=== PATIENT | male | born 1990 | race Caucasian/White ===

== ENCOUNTER 2021-03-17 20:04 | Emergency (ER) | payer BC, SELFPAY ==
[2021-03-17 21:37] VITALS: PULSE 76; RESP 16; TEMP 36.7; O2SAT 95; BMI 29.4
[2021-03-17 21:56] VITALS: BP 0/0; PULSE 0; RESP 0; TEMP -17.7; TEMP 0
--- NOTE | 2021-03-17 22:03 | HMH.EDUTC ---
[facility] [place] Clinical Impression: Exposure to COVID-19 virus Disposition: Home, Self-Care Condition on Discharge: Good Instructions: DI for COVID-19 (Suspected or Confirmed ), Preventing the Spread of Coronavirus Discharge Instructions Additional Instructions: *Monitor Temp, Over the counter Motrin or Tylenol as directed/as needed Tylenol every 4 hours and Motrin every 6 hours (as long as your family doctor has told you that you can take it) for fever or pain. and straight to ER if unable to lower temp less than 101.0 after medication given Follow up IMMEDIATELY for new or worsening symptoms or no Noticeable improvement over the next 48-72 hours. 911 for difficulty breathing or swallowing You were tested for today for COVID19 your test result should be back in the next 24-48 hours You were tested for today for COVID19 your test result should be back in the next 24-48 hours, You was given a handout with how to log onto [facility] to get your results if you have issues logging on or no internet access you may call the [facility] for your results You was given a handout with instructions for Self Quarantine and Self isolation for while you wait on test results and what to do if they are positive If you are positive the Health Dept will be contacting you also Referrals: Provider,Referral, MD [Primary Care Provider] - Forms: Work/School Release Time of Disposition: 22:04 Medical Decision Making - Yaya Inquiry Pt receiving controlled substance: No Yaya was queried for this patient: No Vital Signs: 03/17/21 21:37 03/17/21 21:56 Temperature 98.1 F 0 F L Temperature Source Oral Pulse Rate 0 L Pulse Rate [Left] 76 Respiratory Rate 16 0 L Blood Pressure 0/0 L 02 Sat by Pulse Oximetry 95 Orders (Tests/Meds): ORDERS Category Date Time Status Covid-19 Nasal PCR ([facility]) Routine Lab 03/17/21 21:59 [place] [facility] [place] - General Stated complaint: covid test Time Seen by Provider: 03/17/21 22:03 Mode of Arrival: Ambulatory Source of Information: Patient Limitations: No Limitations Description of Symptoms (Recalled from Triage Doc. by RN): COVID TEST. EXPOSED. HEENT Symptoms (Recalled from RN notes): No Resp Symptoms (Recalled from RN notes): No Skin Symptoms (Recalled from RN notes): No MS Symptoms (Recalled from RN notes): No Functional Status (Recalled from RN notes): NA - History of Present Illness Provider Complaint: Patient states that his girlfriend recently tested postive for COVID and he isnt having any symptoms but he wanted to get tested to see if he may have it so he came in - Related Data Allergies Allergy/AdvReac Type Severity Reaction Status Date / Time No Known Allergies Allergy Unverified 06/20/17 15:01 - Worker's Comp Is this a Worker's Comp case?: No H History - Hepatitis A Screen Drug use history?: No High risk sexual behaviors?: No History of sexually transmitted infection?: No Currently employed?: No Childcare worker?: No Do you have indoor plumbing?: Yes Do you have electricity?: Yes Attestation statement:: This patient has been screened for Hepatitis A risk factors. I have reviewed the patient's past medical history: Yes ROS Obtained: Yes All systems reviewed & no additional complaints, Yes Systems reviewed as appropriate & no additional complaints - Constitutional Constitutional: Reports system reviewed and no additional complaints, except as docu, Denies body ache, Denies chills, Denies fever(s), Denies headache(s) - ENT Ears, Nose, Mouth, and Throat: Reports system reviewed and no additional complaints, except as docu, Denies nasal congestion, Denies nasal discharge, Denies sore throat - Cardiovascular Cardiovascular: Reports system reviewed and no additional complaints, except as docu - Respiratory Respiratory: Reports system reviewed and no additional complaints, except as docu - Gastrointestinal Gastrointestingal: Reports: system revie
== END 2021-03-17 22:09 | disposition home or self-care (01) ==
PROVIDERS: Emergency Provider Nurse Practitioner
DX: Z20.822 Contact with and (suspected) exposure to COVID-19 (principal)
CPT/HCPCS: 99202; C9803; G0463; U0003; U0005

== ENCOUNTER 2022-02-03 14:39 | Emergency (ER) | payer BC, SELFPAY ==
[2022-02-03 14:53] VITALS: BP 137/81; PULSE 77; RESP 15; TEMP 36.6; O2SAT 95; BMI 27.3
--- NOTE | 2022-02-03 14:55 | HMH.EDUTC ---
[facility] [place] Dis[place] Clinical Impression: Viral syndrome, Exposure to COVID-19 virus Disposition: Home, Self-Care Condition on Discharge: Good Instructions: DI for COVID-19 (Suspected or Confirmed ), Preventing the Spread of Coronavirus Discharge Instructions Additional Instructions: Drink plenty of fluids. Take tylenol for pain or fever. Return if you begin to have difficulty breathing. Follow up with your regular doctor. GO TO THE ER FOR ANY WORSENING SYMPTOMS Quarantine until you know the results of your covid-19 test. If it is positive, the health department should call you and give you further instructions about your length of Quarantine and other things. Notify your school or workplace of your results and follow their instructions regarding return to work/school. Prescriptions: Ibuprofen [Ibuprofen 800mg Tablet] 800 mg PO Q8HP PRN #30 tab PRN Reason: Moderate Pain Transmission Status: Received by [id number] Benzonatate [Benzonatate 100mg cap] 100 mg PO TIDP PRN #30 cap PRN Reason: Cough Transmission Status: Received by [id number] Referrals: Provider,Referral, [Primary Care Provider] - Forms: Work/School Release Time of Disposition: 15:30 Medical Decision Making - Medical Records Medical records reviewed: No: I reviewed the patient's medical records. - Yaya Inquiry Pt receiving controlled substance: No Vital Signs: 02/03/22 14:53 02/03/22 15:37 Temperature 97.8 F 97.8 F Temperature Source Oral Pulse Rate 77 Pulse Rate [Left] 77 Respiratory Rate 15 15 Blood Pressure 137/81 Blood Pressure [Right Arm] 137/81 Blood Pressure Mean [Right Arm] 99 02 Sat by Pulse Oximetry 95 Orders (Tests/Meds): ORDERS Category Date Time Status Covid-19 Nasal PCR ([facility]) Routine Lab 02/03/22 14:[address] [facility] [place] HPI - General Stated complaint: cough, headache Time Seen by Provider: 02/03/22 14:55 Mode of Arrival: Ambulatory Source of Information: Patient Limitations: No Limitations Description of Symptoms (Recalled from Triage Doc. by RN): patient comes in today with complaints of cough and headache. symptoms began monday HEENT Symptoms (Recalled from RN notes): Yes Resp Symptoms (Recalled from RN notes): Yes Skin Symptoms (Recalled from RN notes): No MS Symptoms (Recalled from RN notes): No Functional Status (Recalled from RN notes): n/a - History of Present Illness Provider Complaint: He states that he has had a nonproductive cough and sore throat and headache for the past 3 days. - Related Data Previous Rx's Medication Instructions Recorded Benzonatate [Benzonatate 100mg 100 mg PO TIDP PRN #30 cap 02/03/22 cap] Ibuprofen [Ibuprofen 800mg 800 mg PO Q8HP PRN #30 tab 02/03/22 Tablet] Allergies Allergy/AdvReac Type Severity Reaction Status Date / Time No Known Allergies Allergy Verified 02/03/22 14:55 - Worker's Comp Is this a Worker's Comp case?: No [facility] History - Hepatitis A Screen Attestation statement:: This patient has been screened for Hepatitis A risk factors. I have reviewed the patient's past medical history: Yes ROS Obtained: Yes All systems reviewed & no additional complaints - Constitutional Constitutional: Reports as per HPI - Eyes Eyes: Denies eye discharge - ENT Ears, Nose, Mouth, and Throat: Reports as per HPI - Cardiovascular Cardiovascular: Denies chest pain - Respiratory Respiratory: Denies chest congestion, Reports cough Physical Exam - General General appearance: alert, in no apparent distress - Head Head exam: atraumatic, normocephalic, normal inspection - Eye Eye exam: Present: normal appearance, PERRL, EOMI - ENT ENT exam: Present: normal exam, normal oropharynx, mucous membranes moist, TM's normal bilaterally, normal external ear exam - Neck Neck exam: Present: normal inspection, full ROM, trachea midline. Absent: meningismus, lymphadenopathy
[2022-02-03 15:37] VITALS: BP 137/81; PULSE 77; RESP 15; TEMP 36.6
== END 2022-02-03 15:38 | disposition home or self-care (01) ==
PROVIDERS: Emergency Provider Nurse Practitioner Family
DX: J02.9 Acute pharyngitis, unspecified (principal); R05.9 Cough, unspecified; R51.9 Headache, unspecified; Z20.822 Contact with and (suspected) exposure to COVID-19; Z79.1 Long term (current) use of non-steroidal anti-inflammatories (NSAID)
CPT/HCPCS: 99213; C9803; G0463; U0003; U0005

== ENCOUNTER 2023-02-19 21:23 | Emergency (ER) | payer BC, SELFPAY ==
[2023-02-19 21:24] VITALS: BP 163/93; PULSE 94; RESP 16; TEMP 37.2; O2SAT 99; BMI 22.3
[2023-02-19 21:35] VITALS: BP 163/93; PULSE 89; O2SAT 100
[2023-02-19 21:51] VITALS: PULSE 94; RESP 16; TEMP 37.2; O2SAT 99; BMI 22.3
--- NOTE | 2023-02-19 22:14 | PC.NURSE ---
pt is sleeping room,call light at bs
--- NOTE | 2023-02-19 22:19 | CT_ITS ---
PROCEDURE INFORMATION: Exam: CT Abdomen And Pelvis With Contrast Exam date and time: 02/19/2023 11:14 PM Age: 32 years old Clinical indication: Abdominal pain; Additional info: Ruq/r inferior thoracic cage abscess TECHNIQUE: Imaging protocol: Computed tomography of the abdomen and pelvis with contrast. Radiation optimization: All CT scans at this facility use at least one of these dose optimization techniques: automated exposure control; mA and/or kV adjustment per patient size (includes targeted exams where dose is matched to clinical indication); or iterative reconstruction. Contrast material: ISOVUE; Contrast volume: 75 ml; Contrast route: IV; REPORTING DATA: Count of CT and Cardiac NM exams in prior 12 months: This patient has received 0 known CTs and 0 known cardiac nuclear medicine studies in the 12 months prior to the current study. COMPARISON: No relevant prior studies available. FINDINGS: Liver: Normal. No mass. Gallbladder and bile ducts: Gallbladder is contracted with 1.7 cm noncalcified gallstone noted in the gallbladder fundus. Pancreas: Normal. No ductal dilation. Spleen: Normal. No splenomegaly. Adrenal glands: Normal. No mass. Kidneys and ureters: Normal. No hydronephrosis. Stomach and bowel: There is moderate fecal retention throughout the colon. No bowel wall thickening or inflammation. No evidence of bowel obstruction. Appendix: The appendix is visualized and appears normal. Intraperitoneal space: Unremarkable. No free air. No significant fluid collection. Vasculature: Unremarkable. No abdominal aortic aneurysm. Lymph nodes: Unremarkable. No enlarged lymph nodes. Urinary bladder: Unremarkable as visualized. Reproductive: Unremarkable as visualized. Bones/joints: Unremarkable. No acute fracture. Soft tissues: Localized subcutaneous soft tissue edema of the right anterolateral lower chest wall. No discrete fluid collection. IMPRESSION: 1. Localized cellulitis of the lower right anterolateral chest wall. No evidence of abscess underlying bony abnormality 2. Moderate colonic fecal retention. 3. Cholelithiasis
--- NOTE | 2023-02-19 22:19 | CT_ITS ---
PROCEDURE INFORMATION: Exam: CT Chest With Contrast; Diagnostic Exam date and time: 02/19/2023 11:14 PM Age: 32 years old Clinical indication: Chest wall pain; Additional info: R inferior thoracic cage abscess, ivdu TECHNIQUE: Imaging protocol: Diagnostic computed tomography of the chest with contrast. Radiation optimization: All CT scans at this facility use at least one of these dose optimization techniques: automated exposure control; mA and/or kV adjustment per patient size (includes targeted exams where dose is matched to clinical indication); or iterative reconstruction. Contrast material: ISOVUE; Contrast volume: 75 ml; Contrast route: IV; REPORTING DATA: Count of CT and Cardiac NM exams in prior 12 months: This patient has received 0 known CTs and 0 known cardiac nuclear medicine studies in the 12 months prior to the current study. COMPARISON: No relevant prior studies available. FINDINGS: Lungs: Unremarkable. No consolidation. No masses. Pleural spaces: Unremarkable. No pneumothorax. No pleural effusion. Heart: Unremarkable. No cardiomegaly. No pericardial effusion. Lymph nodes: Mild bilateral axillary lymphadenopathy, greater on the right. Vasculature: Unremarkable. No aortic aneurysm. Gallbladder and bile ducts: 1.7 cm noncalcified gallstone noted in the gallbladder. Gallbladder appears contracted but otherwise unremarkable. Bones/joints: Unremarkable. No acute fracture. Soft tissues: Localized significant subcutaneous soft tissue edema in the right anterolateral lower chest wall. No loculated fluid collection seen in the area to suggest abscess. IMPRESSION: 1. Localized subcutaneous soft tissue edema in the anterolateral right lower chest wall compatible with cellulitis. No discrete abscess or underlying bony abnormality 2. Cholelithiasis
--- NOTE | 2023-02-19 22:23 | HMH.EDGENADL ---
Discharge Plan Disposition Patient Disposition: Home, Self-Care Condition: Fair Prescriptions Prescriptions: New sulfamethoxazole-trimethoprim 800-160 mg tablet 1 tab PO Q12H 10 Days Qty: 20 0RF No Action benzonatate 100 MG capsule 100 mg PO TIDP PRN (Reason: Cough) Qty: 30 0RF ibuprofen 800 MG tablet 800 mg PO Q8HP PRN (Reason: Moderate Pain) Qty: 30 0RF Referrals Follow up/Referrals: Provider,Referral, [Primary Care Provider] - See instructions Activity Restrictions/Add. Instructions Additional Instructions/Restrictions: Take the prescribed antibiotics as directed, do not skip doses, do not stop taking them early. Continue taking your previously prescribed medications as directed. Follow-up with your primary care physician in 2 days for reassessment. You have been given a list of primary care providers. Make an appointment with them. Return to the emergency department with new or worsening symptoms. Clinical Impressions Clinical Impression: Cellulitis of chest wall Instructions Patient Instructions: DI for Skin Abscess Discharge ED Provider: Roe Sanchez General Adult HPI <Grayson Sorto MD - Last Filed: 02/19/23 23:15> General Chief complaint: Skin/Abscess/Foreign Body Stated complaint: sore on stomach Time Seen by Provider: 02/19/23 21:41 Mode of Arrival: Ambulatory Source of Information: Patient Limitations: No Limitations Description of Symptoms (Recalled from ER Triage Doc. by RN): pt reports red area appeared 4 days ago on right side of abd, reports he drained it now having increasing pain and redness History of Present Illness HPI narrative: Patient is a 32-year-old male with past medical history of meth use, IV drug use who presents emergency department for evaluation of right inferior thoracic cage swelling. Onset was acute, occurring approximately 4 days ago. He reports he attempted to drain it however redness and swelling has increased causing him to present here. Pain is moderate in intensity, no other acute complaints at this time. Related Data Previous Rx's Medication Instructions Recorded benzonatate 100 mg capsule 100 mg PO TIDP PRN Cough #30 caps 02/03/22 ibuprofen 800 mg tablet 800 mg PO Q8HP PRN Moderate Pain 02/03/22 #30 tabs sulfamethoxazole 800 1 tab PO Q12H 10 days #20 tabs 02/20/23 mg-trimethoprim 160 mg tablet Allergies Allergy/AdvReac Type Severity Reaction Status Date / Time No Known Allergies Allergy Verified 02/03/22 14:55 PFSH <Grayson Sorto MD - Last Filed: 02/19/23 23:15> PFSH Disclaimer: The information contained in this section may have been updated after the patient was seen, as this information can be updated by other users. Social History (Updated 02/19/23 @ 23:15 by Grayson Sorto MD) Smoking Status: Current every day smoker alcohol intake: current current occupational status: other Travel in the last 8 weeks: None <Grayson Sorto MD - Last Filed: 02/19/23 23:15> ROS Obtained: Yes Systems reviewed as appropriate & no additional complaints except as documented Physical Exam <Grayson Sorto MD - Last Filed: 02/19/23 23:15> General General appearance: alert and in no apparent distress Head Head exam: atraumatic and normocephalic Eye Eye exam: Present PERRL and EOMI ENT ENT exam: Present mucous membranes moist Neck Neck exam: Present normal inspection Chest Chest inspection: Present normal inspection and symmetric chest wall rise Expanded Chest Exam Trauma: Present other (Large indurated area of erythema with central scabbing over the right inferior thoracic cage extending just into the right upper quadrant of the abdomen, tender to palpation) Respiratory Respiratory exam: Present normal lung sounds bilaterally; Absent respiratory distress Cardiovascular Cardiovascular exam: Present regular rate and normal rhythm Abdominal Exam Abdominal exam: Present soft; Absent tenderness Extremities Exam
[2023-02-19 22:43] LABS: Basophils # 0.1 K/mm3 (0-0.2); Basophils % 0.5 % (0.1-2.0); Eosinophils % 6.6 % (0.1-12.0); Hematocrit 44.6 % (42.0-52.0); Hemoglobin 14.4 g/dL (14.1-18.0); Lymphocytes # 2.7 K/mm3 (0.7-4.5); Lymphocytes % 18.3 % (10-50); Mean Corpuscular HGB Conc 32.2 g/dL (31.8-35.4); Mean Corpuscular Hemoglobin 28.5 pg (27.0-31.2); Mean Corpuscular Volume 88.5 fl (80-94); Mean Platelet Volume 9.6 fl (7.4-10.4); Monocytes # 0.7 K/mm3 (0.1-1.0); Neutrophils # 10.1 K/mm3 (1.8-7.8); Neutrophils % 69.7 % (37.0-80.0); Platelet Count 217 K/mm3 (142-424); Red Blood Count 5.04 M/mm3 (4.60-6.20); Red Cell Distribution Width 14.1 % (11.5-17.5); White Blood Count 14.6 K/mm3 (4.8-10.8)
[2023-02-19 22:59] LABS: Chloride 98 mmol/L (98-107); Potassium 3.5 mmoL/L (3.5-5.1); Sodium 136 mmol/L (136-145)
[2023-02-19 23:02] LABS: Alanine Aminotransferase 91 U/L (12-78); Albumin Level 3.4 g/dl (3.5-5.0); Albumin/Globulin Ratio 1.1 (1.1-1.8); Alkaline Phosphatase 88 U/L (38-126); Anion Gap 10.5 mEq/L (5-15); Aspartate Amino Transferase 52 U/L (17-59); Bilirubin,Total 0.4 mg/dl (0.2-1.3); Blood Urea Nitrogen 16 mg/dl (9-20); Carbon Dioxide 31 mmol/L (22.0-30.0); Creatinine Clearance Estimated 158 mL/min (50-200); Estimated Glomerular Filt Rate 132 ml/min (>60); GFR (African American) 160 ML/MIN (>60); Globulin 3.1 g/dL (1.3-3.2); Total Protein,Serum 6.5 g/dl (6.3-8.2)
[2023-02-19 23:03] LABS: Calcium 8.7 mg/dl (8.4-10.2); Glucose 109 mg/dl (74-100)
[2023-02-20 00:05] VITALS: BP 163/78; PULSE 96; O2SAT 98
--- NOTE | 2023-02-20 00:05 | PC.NURSE ---
Rounded on pt. No needs voiced at this time.
[2023-02-20 00:13] VITALS: BP 163/97; PULSE 82; RESP 16; TEMP 37.1; O2SAT 99
== END 2023-02-20 00:13 | disposition home or self-care (01) ==
PROVIDERS: Emergency Medicine; Emergency Provider Emergency Medicine
DX: L03.313 Cellulitis of chest wall (principal); F17.200 Nicotine dependence, unspecified, uncomplicated
CPT/HCPCS: 71260; 74177; 80053; 85025; 86140; 96360; 99285; Q9967

== ENCOUNTER 2023-03-26 03:59 | Emergency (ER) | payer SELFPAY ==
[2023-03-26] VITALS (10 sets, daily range): BP systolic 118–147; BP diastolic 67–91; PULSE 72–94; RESP 14–20; TEMP 36.5–36.6; O2SAT 97–100; BMI 22.8
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
--- NOTE | 2023-03-26 04:09 | PC.NURSE ---
Called to request medical records from pts visit at their facility. Advised to fax over a medical release form and they will send them to us. Form faxed over. JOSÉ MANUEL
[2023-03-26 04:34] LABS: Basophils # 0.1 K/mm3 (0-0.2); Basophils % 0.6 % (0.1-2.0); Eosinophils # 0.5 K/mm3 (0.0-0.4); Eosinophils % 4.6 % (0.1-12.0); Hematocrit 48.8 % (42.0-52.0); Hemoglobin 15.7 g/dL (14.1-18.0); Lymphocytes # 2.1 K/mm3 (0.7-4.5); Lymphocytes % 18.1 % (10-50); Mean Corpuscular HGB Conc 32.1 g/dL (31.8-35.4); Mean Corpuscular Hemoglobin 28.2 pg (27.0-31.2); Mean Corpuscular Volume 87.7 fl (80-94); Mean Platelet Volume 9.9 fl (7.4-10.4); Monocytes # 0.6 K/mm3 (0.1-1.0); Monocytes % 5.4 % (1.7-9.3); Neutrophils # 8.3 K/mm3 (1.8-7.8); Neutrophils % 71.2 % (37.0-80.0); Platelet Count 239 K/mm3 (142-424); Red Blood Count 5.57 M/mm3 (4.60-6.20); White Blood Count 11.6 K/mm3 (4.8-10.8)
[2023-03-26 04:39] LABS: Chloride 103 mmol/L (98-107)
[2023-03-26 04:40] LABS: Potassium 3.6 mmoL/L (3.5-5.1); Sodium 142 mmol/L (136-145)
[2023-03-26 04:42] LABS: Blood Urea Nitrogen 16 mg/dl (9-20); Creatinine Clearance Estimated 119 mL/min (50-200); Estimated Glomerular Filt Rate 99 ml/min (>60); GFR (African American) 120 ML/MIN (>60)
[2023-03-26 04:43] LABS: Anion Gap 9.6 mEq/L (5-15); Carbon Dioxide 33 mmol/L (22.0-30.0); Glucose 113 mg/dl (74-100)
--- NOTE | 2023-03-26 04:54 | PC.NURSE ---
received call from chavo
--- NOTE | 2023-03-26 05:00 | PC.NURSE ---
Called for a Neurological consult for Dr Hopper. Waiting bone grinder back. CR
--- NOTE | 2023-03-26 05:28 | PC.NURSE ---
Called EMS to transfer the pt back to for further evaluation. Called and spoke to Camille. JOSÉ MANUEL
--- NOTE | 2023-03-26 06:43 | PC.NURSE ---
waiting on EMS due to ambulance avail. is aware.
--- NOTE | 2023-03-26 07:25 | PC.NURSE ---
Rounded on pt. No needs voiced at this time. Pt updated on expected wait times. Call light within reach.
--- NOTE | 2023-03-26 07:37 | PC.NURSE ---
PT RESTING ON RIGHT SIDE, NO NEEDS VOICED. CALL LIGHT WITHIN REACH
--- NOTE | 2023-03-26 08:22 | PC.NURSE ---
rounded on pt, updated pt EMS is on their way for transport, pt requested medication for headache, notified dr. greer who gave verbal order.
--- NOTE | 2023-03-26 08:33 | PC.NURSE ---
REPORT GIVEN TO [facility]
== END 2023-03-26 08:37 | disposition short-term general hospital (02) ==
PROVIDERS: Emergency Provider Emergency Medicine
DX: S06.5XAA Traumatic subdural hemorrhage with loss of consciousness status unknown, initial encounter (principal); S02.81XA Fracture of other specified skull and facial bones, right side, initial encounter for closed fracture; Y09 Assault by unspecified means; F17.200 Nicotine dependence, unspecified, uncomplicated
CPT/HCPCS: 70450; 70486; 80048; 85025; 96361; 96374; 96375; 99291

== ENCOUNTER 2023-09-24 18:45 | Emergency (ER) | payer MEDICAID, SELFPAY ==
[2023-09-24 18:46] VITALS: BP 168/105; PULSE 108; RESP 16; TEMP 36.2; O2SAT 88; BMI 23.7
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
--- NOTE | 2023-09-24 18:52 | ECG_ITS ---
APPROVED REPORT Exam: Resting ECG HR:113 bpm ECG Measurements Heart Rate 113 AXES MS 167 P 77 QRSd 122 QRS 49 QT 340 T 38 QTc 407 Critical Notification Critical Value: No Conclusion SINUS TACHYCARDIA POSSIBLE RIGHT VENTRICULAR CONDUCTION DELAY [RSR (QR) IN V1/V2] Electronically signed by : JAYE KNAPP, 09/25/2023 00:50:01
[2023-09-24] MEDS: NALOXONE 2MG/2ML SYRINGE 2 MG IV (18:56)
[2023-09-24] MEDS: ONDANSETRON 4MG/2ML VIAL 8 MG IV (18:56)
[2023-09-24 19:00] VITALS: BP 161/108; PULSE 99; RESP 21; O2SAT 99
[2023-09-24 19:30] VITALS: BP 160/108; PULSE 98; RESP 18; O2SAT 100
--- NOTE | 2023-09-24 19:30 | PC.NURSE ---
rounded on patient, mother stepped out of room
[2023-09-24] MEDS: NALOXONE HCL 4MG SPRAY 4 MG NS ×2 (19:36→20:50)
--- NOTE | 2023-09-24 19:42 | PC.NURSE ---
Provided patient with a urinal so he could use the bathroom, after re-entering the room the patient asked for a drink. After getting the patient a drink he asked when he would be able to leave and stated that he would like to leave as soon as possible. After relaying the info to the doctor he stated what the effects of the patient leaving and the medicine wearing off and he could stop breathing again. The patient was informed of all these things and agreed to stay.
[2023-09-24 19:44] VITALS: BP 165/116; PULSE 99; O2SAT 99
[2023-09-24 20:00] VITALS: BP 153/128; PULSE 104; RESP 17; O2SAT 100
--- NOTE | 2023-09-24 20:06 | PC.NURSE ---
rounded on patient, no needs at this time, mother at bedside
[2023-09-24 21:29] VITALS: BP 120/70; PULSE 101; RESP 19; TEMP 36.8; O2SAT 98
== END 2023-09-24 21:30 | disposition home or self-care (01) ==
PROVIDERS: Emergency Provider Emergency Medicine
DX: T40.1X1A Poisoning by heroin, accidental (unintentional), initial encounter (principal); R00.0 Tachycardia, unspecified; F17.210 Nicotine dependence, cigarettes, uncomplicated
CPT/HCPCS: 93005; 96374; 96375; 99285; J2310; J2405

== ENCOUNTER 2024-01-22 20:02 | Emergency (ER) | payer MEDICAID, SELFPAY ==
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
[2024-01-22 20:02] VITALS: BP 153/92; PULSE 92; RESP 18; TEMP 36.8; O2SAT 100; BMI 24.3
[2024-01-22] MEDS: ACETAMINOPHEN 500MG TAB 1000 MG PO (20:15)
[2024-01-22] MEDS: cephALEXin 500MG CAPSULE 500 MG PO (20:15)
[2024-01-22] MEDS: LIDOCAINE 1% 10ML MDV 10 ML SQ (20:16)
--- NOTE | 2024-01-22 20:22 | PC.NURSE ---
patient to radiology
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
[2024-01-22 20:55] VITALS: BP 130/74; PULSE 95; O2SAT 100
[2024-01-22 22:17] VITALS: BP 130/84; PULSE 80; RESP 16; TEMP 36.6; O2SAT 98
== END 2024-01-22 22:20 | disposition home or self-care (01) ==
PROVIDERS: Emergency Provider Student in an Organized Health Care Education/Training Program
DX: S01.81XA Laceration without foreign body of other part of head, initial encounter (principal); F19.90 Other psychoactive substance use, unspecified, uncomplicated; W17.89XA Other fall from one level to another, initial encounter; Z23 Encounter for immunization
CPT/HCPCS: 12014; 70450; 70486; 72125; 90471; 99285

== ENCOUNTER 2024-01-24 16:11 | Emergency (ER) | payer MEDICAID, SELFPAY ==
[2024-01-24 16:20] VITALS: BP 119/62; PULSE 62; RESP 20; TEMP 36.9; O2SAT 99; BMI 22.9
--- NOTE | 2024-01-24 16:43 | ED_ITS ---
Discharge Plan Disposition Patient Disposition: Home, Self-Care Condition: Good Prescriptions Prescriptions: No Action cephalexin 500 mg capsule 500 mg PO BID 7 Days Qty: 14 0RF benzonatate 100 MG capsule 100 mg PO TIDP PRN (Reason: Cough) Qty: 30 0RF ibuprofen 800 MG tablet 800 mg PO Q8HP PRN (Reason: Moderate Pain) Qty: 30 0RF sulfamethoxazole-trimethoprim 800-160 mg tablet 1 tab PO Q12H 10 Days Qty: 20 0RF Referrals Follow up/Referrals: Provider,Referral, MD [Primary Care Provider] - See instructions Activity Restrictions/Add. Instructions Additional Instructions/Restrictions: Continue taking antibiotivc as prescribed Ice to area 20min every coulple hours may help with swelling and pain Follow up with Eye Doctor if any vision changes or problems Follow up with your Family Doctor if needed or no improvement Straight to ER if any life threatening symptoms, worse headache of your life, vision loss or changes etc as discussed Clinical Impressions Clinical Impression: Visit for wound check Instructions Patient Instructions: DI for Hematoma (Bruise), DI for Closed Head Injury Print Language Print Language: Iranian Discharge ED Provider: Zoya Yanez [facility] [place] General Stated complaint: swollen eye, head hurts Mode of Arrival: Ambulatory Source of Information: Patient Limitations: No Limitations Time Seen by Provider: 01/24/24 16:43 Description of Symptoms (Recalled from Triage Doc. by RN): PATIENT STATES HE HIT HIS HEAD AND LEFT EYE AREA ON A ROCK A FEW DAYS AGO. HE WAS SEEN IN THE ER AFTER THE INCIDENT, BUT STATES THE SWELLING AROUND THE EYE HAS GOTTEN WORSE HEENT Symptoms (Recalled from RN notes): Yes Resp Symptoms (Recalled from RN notes): No Skin Symptoms (Recalled from RN notes): No MS Symptoms (Recalled from RN notes): No Functional Status (Recalled from RN notes): WNL History of Present Illness Provider Complaint: Patient states that he was jumping off the rocks into the water the other day and hit his head on something causing laceration to left eyebrow area States he was seen and treated in the ED and got sutures States that they did some imaging to check his head, neck and face and everything was ok nothing broken and they sutured his eyebrow and give him some antibiotics States he hasnt been having any vision issues or pain in his eye but today noticed the swelling was a little worse and he was worried so he came in just wanting someone to look at it Denies changes in vision, denies worsening of headache, nausea/vomiting or any dizziness Related Data Previous Rx's ?Medication ?Instructions ?Recorded benzonatate 100 mg capsule 100 mg PO TIDP PRN Cough #30 caps 02/03/22 ibuprofen 800 mg tablet 800 mg PO Q8HP PRN Moderate Pain 02/03/22 #30 tabs sulfamethoxazole 800 1 tab PO Q12H 10 days #20 tabs 02/20/23 mg-trimethoprim 160 mg tablet cephalexin 500 mg capsule 500 mg PO BID 7 days #14 caps 01/22/24 Allergies Allergy/AdvReac Type Severity Reaction Status Date / Time No Known Allergies Allergy Verified 02/03/22 14:55 Worker's Comp Is this a Worker's Comp case?: No [facility] Disclaimer: The information contained in this section may have been updated after the patient was seen, as this information can be updated by other users. Social History Smoking Status: Current every day smoker alcohol intake: current current occupational status: other Travel in the last 8 weeks: None ROS Obtained: Yes All systems reviewed & no additional complaints except as documented and Yes Systems reviewed as appropriate & no additional complaints except as documented Constitutional Constitutional: Reports system reviewed and no additional complaints, except as documented and Reports as per HPI Eyes Eyes: Reports system reviewed and no additional complaints, except as documented and Reports as per HPI Comments: laceration that was repaired on left eyebrow area and swelling around eye ENT Ears, Nose, Mouth, and Throat: Reports system reviewed and no additional complaints, except as documented and Reports as per HPI Cardiovascular Cardiovascular: Reports system reviewed and no additional complaints, except as documented and Reports as per HPI Respiratory Respiratory: Reports system reviewed and no additional complaints, except as documented and Reports as per HPI Gastrointestinal Gastrointestingal: Reports system reviewed and no additional complaints, except as documented and as per HPI Musculoskeletal Musculoskeletal: Reports system reviewed and no additional complaints, except as documented and Reports as per HPI Physical Exam General General appearance: alert and in no apparent distress Expanded Head Exam Head exam physical: Present contusion and other Head image: 2 1. sutures noted in left eyebrow, intact, no drainage, bruising and mild swelling noted 2. mild swelling and bruising noted no open wounds, able to open eye easily, able to move eye side to side and up and down without difficulty Eye Eye exam: Present normal appearance, PERRL, EOMI and other (see above ); Absent conjunctival redness or discharge Respiratory Respiratory exam: Present normal lung sounds bilaterally; Absent respiratory distress or wheezes Cardiovascular Cardiovascular exam: Present regular rate, normal rhythm and normal heart sounds Neurological Exam Neurological exam: Present alert, oriented X3 and normal gait Medical Decision Making Yaya Inquiry Pt receiving controlled substance: No Yaya was queried for this patient: No Vital Signs: 01/24/24 16:20 Temperature 98.4 F Temperature Source Oral Pulse Rate [Left Brachial] 62 Respiratory Rate 20 Blood Pressure [Left Arm] 119/62 Blood Pressure Mean [Left Arm] 81 Blood Pressure Source [Left Arm] Automatic Cuff Blood Pressure Position [Left Arm] Sitting 02 Sat by Pulse Oximetry 99 Oxygen Delivery Method Room Air Medical Decision Narrative: Patient denies worse headache of his life, denies vision changes or difficulty, denies confusion or N/V States noticed swelling was a little worse when he woke up and he was concerned wanting someone to look at it, patient had CT of head, Ct facial bones and CT cervical spine when in ED 2 days prior looked at results and discussed with patient Patient denies seeing spots etc, Patient states he has been taking antibiotics but has not been applying ice to area Patient educated to apply ice to help with swelling and follow up with eye doctor if any changes in vision Discussed transfer to the ED patient declined Mild swelling noted at this time with mild bruising on eyelid Patient given strict return precautions to the ED and educated that there will be swelling over the next few days due to injury and he verbalized understanding
[2024-01-24 16:54] VITALS: BP 119/62; PULSE 62; RESP 20; TEMP 36.9; O2SAT 99
== END 2024-01-24 17:01 | disposition home or self-care (01) ==
PROVIDERS: Emergency Provider Nurse Practitioner
DX: R22.0 Localized swelling, mass and lump, head (principal)
CPT/HCPCS: 99212; 99213; G0463

== ENCOUNTER 2024-03-19 13:27 | Emergency (ER) | payer MEDICAID, SELFPAY ==
[2024-03-19 14:03] VITALS: BP 133/76; PULSE 82; RESP 16; TEMP 36.8; O2SAT 99; BMI 25.1
--- NOTE | 2024-03-19 14:17 | ED_ITS ---
Discharge Plan Disposition Patient Disposition: Home, Self-Care Condition: Good Prescriptions Prescriptions: New sulfamethoxazole-trimethoprim [Bactrim DS] 800-160 mg Tablet 1 tab PO BID Qty: 20 0RF cephalexin 500 mg capsule 500 mg PO QID Qty: 40 0RF mupirocin 2 % ointment 1 applic topical TID 7 Days Qty: 15 0RF No Action cephalexin 500 mg capsule 500 mg PO BID 7 Days Qty: 14 0RF benzonatate 100 MG capsule 100 mg PO TIDP PRN (Reason: Cough) Qty: 30 0RF ibuprofen 800 MG tablet 800 mg PO Q8HP PRN (Reason: Moderate Pain) Qty: 30 0RF sulfamethoxazole-trimethoprim 800-160 mg tablet 1 tab PO Q12H 10 Days Qty: 20 0RF Referrals Follow up/Referrals: Provider,Referral, MD [Primary Care Provider] - See instructions Activity Restrictions/Add. Instructions Additional Instructions/Restrictions: Keep the affected area clean and dry. Follow up with your regular doctor. Take the antibiotics as directed and apply the topical antibiotics as directed. Apply warm wet compresses to the affected area three or four times per day. GO TO THE ER FOR ANY WORSENING SYMPTOMS We took a culture of the drainage from the abscesses. This test will take 3 days to complete. It will tell which antibiotic that treat your infection best. Clinical Impressions Clinical Impression: Cutaneous abscess of left axilla, Abscess of skin Stand Alone Forms Stand Alone Forms: Work/School Release Instructions Patient Instructions: Ceftriaxone Injection, DI for Skin Abscess, DI for Incision and Drainage Print Language Print Language: Upper Sorbian Discharge ED Provider: Terrance Martin [facility] General Stated complaint: cyst on L underarm Mode of Arrival: Ambulatory Source of Information: Patient Limitations: No Limitations Time Seen by Provider: 03/19/24 14:17 Description of Symptoms (Recalled from Triage Doc. by RN): Reports having an abscess to left armit for 5 days. HEENT Symptoms (Recalled from RN notes): No Resp Symptoms (Recalled from RN notes): No Skin Symptoms (Recalled from RN notes): Yes MS Symptoms (Recalled from RN notes): No Functional Status (Recalled from RN notes): wnl History of Present Illness Provider Complaint: He states that for the past 5 days he has had a worsening skin abscess in his left axilla. He has had similar issues to this in the past and he had to have it drained then. He denies any fever/chills/malaise. He is not a diabetic. Related Data Previous Rx's ?Medication ?Instructions ?Recorded benzonatate 100 mg capsule 100 mg PO TIDP PRN Cough #30 caps 02/03/22 ibuprofen 800 mg tablet 800 mg PO Q8HP PRN Moderate Pain 02/03/22 #30 tabs sulfamethoxazole 800 1 tab PO Q12H 10 days #20 tabs 02/20/23 mg-trimethoprim 160 mg tablet cephalexin 500 mg capsule 500 mg PO BID 7 days #14 caps 01/22/24 cephalexin 500 mg capsule 500 mg PO QID #40 caps 03/19/24 mupirocin 2 % topical ointment 1 applic topical TID 7 days #15 03/19/24 grams sulfamethoxazole 800 1 tab PO BID #20 tabs 03/19/24 mg-trimethoprim 160 mg tablet (Bactrim DS) Allergies Allergy/AdvReac Type Severity Reaction Status Date / Time No Known Allergies Allergy Verified 02/03/22 14:55 Worker's Comp Is this a Worker's Comp case?: No [facility] Disclaimer: The information contained in this section may have been updated after the patient was seen, as this information can be updated by other users. Social History Smoking Status: Current every day smoker alcohol intake: current current occupational status: other Travel in the last 8 weeks: None ROS Obtained: Yes All systems reviewed & no additional complaints except as documented Constitutional Constitutional: Denies chills and Denies fever(s) Eyes Eyes: Denies eye discharge ENT Ears, Nose, Mouth, and Throat: Denies dizziness, Denies otalgia and Denies sore throat Cardiovascular Cardiovascular: Denies chest pain Respiratory Respiratory: Denies shortness of breath, Denies chest congestion, Denies cough, Denies stridor and Denies wheezing Gastrointestinal Gastrointestingal: Denies nausea or vomiting Musculoskeletal Musculoskeletal: Reports system reviewed and no additional complaints, except as documented and Denies arthralgias Integumentary/Breasts Skin/Breast: Reports as per HPI Neurologic Neurologic: Denies dizziness and Denies paresthesias Allergic/Immunologic Allergic/Immunologic: Denies wheezing Physical Exam General General appearance: alert and in no apparent distress Head Head exam: atraumatic, normocephalic and normal inspection Eye Eye exam: Present normal appearance, PERRL and EOMI ENT ENT exam: Present normal exam, normal oropharynx, mucous membranes moist, TM's normal bilaterally and normal external ear exam Neck Neck exam: Present normal inspection, full ROM and trachea midline; Absent meningismus or lymphadenopathy Chest Chest inspection: Present normal inspection and symmetric chest wall rise; Absent tenderness Respiratory Respiratory exam: Present normal lung sounds bilaterally; Absent respiratory distress Cardiovascular Cardiovascular exam: Present regular rate and normal rhythm; Absent JVD Abdominal Exam Abdominal exam: Present soft and normal bowel sounds; Absent distention, tenderness or guarding Extremities Exam Extremities exam: Present normal inspection, full ROM and normal capillary refill; Absent calf tenderness Back Exam Back exam: Present normal inspection; Absent tenderness Neurological Exam Neurological exam: Present alert and oriented X3 Psychiatric Psychiatric exam: Present normal affect and normal mood Skin Skin exam: Present other (there are 2 areas of edema, redness, and induration in his left axilla. ) Lymphatic Lymphatic Findings: no adenopathy Medical Decision Making Medical Records Medical records reviewed: No I reviewed the patient's medical records. Screening: Per USPSTF and CDC recommendations, given the prevalence of disease in our region, it is our hospital?s policy to screen for HIV and viral Hepatitis for all patients aged 18 and over and those with ongoing risk factors. Yaya Inquiry Pt receiving controlled substance: No Vital Signs: 03/19/24 14:03 Temperature 98.2 F Temperature Source Oral Pulse Rate [Radial] 82 Respiratory Rate 16 Blood Pressure [Right Arm] 133/76 Blood Pressure Mean [Right Arm] 95 Blood Pressure Source [Right Arm] Automatic Cuff Blood Pressure Position [Right Arm] Sitting 02 Sat by Pulse Oximetry 99 Oxygen Delivery Method Room Air Procedures Risk/Benefits of Procedure(s) Were Explained: Yes Abscess I/D Site: upper extremity Side (if applicable): left Sedation/analgesia: none Local Anesthetic: lidocaine 1% Amount of anesthesia used (mL): 2 Technique: incised with #11 blade Amount of fluid expressed (mL): 15 Irrigation: No Packing used?: none (He tolerated this well, a large amount of tannish drainage was expressed. a sample was obtained for C & S.)
[2024-03-19] MEDS: cefTRIAXone 1GM VIAL 1 GM IM (15:36)
[2024-03-19] MEDS: LIDOCAINE 1% 5ML PF VIAL IM (15:36)
[2024-03-19 15:50] VITALS: BP 133/76; PULSE 82; RESP 16; TEMP 36.8; O2SAT 99
== END 2024-03-19 15:51 | disposition home or self-care (01) ==
PROVIDERS: Emergency Provider Nurse Practitioner Family
DX: L02.412 Cutaneous abscess of left axilla (principal); B95.7 Other staphylococcus as the cause of diseases classified elsewhere
CPT/HCPCS: 10060; 87070; 87077; 87186; 87205; 96372; 99213; 99214; G0463; J0696

== ENCOUNTER 2024-05-29 15:56 | Emergency (ER) | payer MEDICAID, SELFPAY ==
--- NOTE | 2024-05-29 16:00 | XR_ITS ---
PROCEDURE INFORMATION: Exam: XR Right Hand Exam date and time: 05/29/2024 3:55 PM Age: 33 years old Clinical indication: Pain; Finger(s); Right; Additional info: Pain, swelling. States nki TECHNIQUE: Imaging protocol: Radiologic exam of the right hand. Views: 3 or more views. COMPARISON: No relevant prior studies available. FINDINGS: Bones/joints: Normal. Soft tissues: Mild generalized soft tissue swelling. Focus of moderate soft tissue swelling in the index finger at the level of the DIP joint. No radiopaque foreign body. IMPRESSION: Soft tissue swelling.
--- OUTSIDE RECORDS SUMMARY | 2024-05-29 16:00 | XMS_ITS | Encounter Summary ---
Author Organization [facility] [place] [address] Care Team Providers Care Shirt Presser Name Role Phone Unavailable Primary Care Provider Unavailabl e Reason for Visit * Reason Comments Addiction Problem Pt states I used fen tanyl last night, I laid on the floor awhile, my left shoulder hurts, family member gave me narcan at 530am this morning, just want to get checked out to make sure I am okay. Encounter Details Date Type Department Care Team (Late st Contact Info) Description 02/25/2022 1:55 PM EDT - 02/25/2022 4:22 PM EDT Emergency [place] [facility] [place] [address] Chuckie Casanova MD [address] [place] [address] [place] [id number] Accidental overdose, initial encounter (Primary Dx); Encounter to obtain excuse from work; Left anterior shoulder pain Discharge Disposition: Home or Self Care Social History Tobacco Use Types Packs/Day Years Used Date Smoking Tobacco: Never Smokeless Tobacco: Never Alcohol Use Standard Drinks/Week Comments Yes 0 (1 standard drink = 0.6 oz pur e alcohol) Sex and Gender Information Value Date Recorded Sex Assigned at Not on file Legal Sex Male 1:55 PM EST Gender Identity Not on file Sexual Orientation Not on file documented as of this encounter Last Filed Vital Signs Vital Sign Reading Time Taken Comments Blood Pressure 124/84 02/25/2022 1:24 PM EDT Pulse 80 02/25/2022 1:24 PM EDT Temperature 36.7 ??C (98 ??F) 02/25/2022 1:24 PM EDT Respiratory Rate 14 02/25/2022 1:24 PM EDT Oxygen Saturation 100% 02/25/2022 1:24 PM EDT Inhaled Oxygen Concentration - - Weight - - Height - - Body Mass Index - - documented in this encounter Discharge Instructions * Attachments The following attachments cannot be sent through Care Everywhere. * Accidental Overdose Discharge Instructions ([place]) * Muscle and Bone Pain Discharge Instructions ([place]) documented in this encounter Medications at Time of Discharge nalOXone (NARCAN) 4 mg/actuation Nasl [place], Non-Aerosol 0.1 mL by INTRANASAL route as needed for Opioid Reversal. 1 Each 1 02/25/2022 traMADoL (ULTRAM) 50 mg Oral TabletIndications :Sprain of left ankle, unspecified ligament, initial encounter Take 1 Tablet by mouth every 8 hours as needed for Pain. 20 Tablet 06/24/2021 documented as of this encounter Ordered Prescriptions Prescription Sig Dispense Quantity Refills Last Filled Start Date End Date nalOXone (NARCAN) 4 mg/actuation Nasl [place], Non-Aerosol 0.1 mL by INTRANASAL route as needed for Opioid Reversal. 1 Each 1 02/25/2022 documented in this encounter Discharge Disposition Disposition Code Departure Means Destination Comment s Home or Self [facility] documented in this encounter ED Notes * Blanca Hernandez RN - 02/25/2022 4:15 PM EDT Report back to Heather YBARRA * Blanca Hernandez RN - 02/25/2022 3:10 PM EDT Report from Heather YBARRA for lunch coverage * Cata Cowart APRN - 02/25/2022 1:01 PM EDT CHIEF COMPLAINT Chief Complaint Patient presents with ??? Addiction Problem Pt states I used fentanyl last night, I laid on the floor awhile, my left shoulder hurts, family member gave me narcan at 530am this morning, just want to get checked out to make sure I am okay. HPI Artie Drummond is a 31 y.o. male who presents for evaluation secondary to accidental overdose. The patient admits to snorting fentanyl last evening. He states he then most likely passed out and awoke alta hard floor. His family stated he was barely breathing and was given Narcan in the field at 5:30 AM. The patient is here to obtain a work excuse with left-sided shoulder pain. He is right-hand dominant. He denied any acute shortness of breath, chest pain, or palpitation complaints. The patient states basically I need a work note. The patient denied suicidal or homicidal ideation. He arrived byprivate car for evaluation. REVIEW OF SYSTEMS See HPI for further details. Review of systems otherwise negative. PAST MEDICAL HISTORY No past medical history on file. FAMILY HISTORY No family history on file. SOCIAL HISTORY Social History Socioeconomic History ??? Marital status: Single Tobacco Use ??? Smoking status: Never Smoker ??? Smokeless tobacco: Never Used Substance and Sexual Activity ??? Alcohol use: Yes ??? Drug use: Yes Comment: Heroin SURGICAL HISTORY No past surgical history on file. CURRENT MEDICATIONS No current facility-administered medications for this encounter. Current Outpatient Medications: ??? nalOXone (NARCAN) 4 mg/actuation Nasl [place], Non-Aerosol, 0.1 mL by INTRANASAL route as needed for Opioid Reversal., Disp: 1 Each, Rfl: 1 ??? traMADoL (ULTRAM) 50 mg Oral Tablet, Take 1 Tablet by mouth every 8 hours as needed for Pain., Disp: 20 Tablet, Rfl: 0 ALLERGIES No Known Allergies PHYSICAL EXAM VITAL SIGNS: ED Triage Vitals [02/25/22 1324] Temp 98 ??F (36.7 ??C) Pulse 80 Resp 14 BP 124/84 SpO2 100 % Height Weight Constitutional: Well developed, Well nourished, No acute distress, Non-toxic appearance. HENT: Normocephalic, Atraumatic, Bilateral external ears normal, Oropharynx moist, No oral exudates, Nose normal. Eyes: PERRLA, EOMI, Conjunctiva normal, No discharge. Neck: Normal range of motion, No tenderness, Supple, No stridor. Lymphatic: No lymphadenopathy noted. Cardiovascular: Normal heart rate, Normal rhythm, No murmurs, No rubs, No gallops. Thorax & Lungs: Normal breath sounds, No respiratory distress, No wheezing, No chest tenderness. Abdomen: No guarding, no rigidity, no rebound tenderness, no peritoneal signs Skin: Warm, Dry, No erythema, No rash. Back: No tenderness, No CVA tenderness. Extremities: Intact distal pulses, No edema, + reproducible left anterior shoulder tenderness, no obvious dislocation or shortening, no cyanosis. No palpable step-off or crepitus, no obvious bony abnormality, able to raise 90 degrees, able to flex/extend with/without resistance, full range of motion despite pain complaints; pain increases with active range of motion Neurologic: Alert & oriented x 3, Normal motor function, Normal sensory function, No focal deficits noted. LABS/RADIOLOGY/PROCEDURES Results for orders placed or performed during the hospital encounter of 02/25/22 XR LEFT SHOULDER 5 VIEW Narrative XR LEFT SHOULDER 5 VIEW, 02/25/2022 2:19 PM CLINICAL HISTORY: -ADDICTION PROBLEM COMPARISON: None. PROCEDURE COMMENTS: Routine views. FINDINGS: The glenohumeral and acromioclavicular joints are congruent. There is no fracture. Joint spaces overall well-maintained for age. No periostitis. Impression No acute bony abnormality of the shoulder. - Note: Radiology results need to be interpreted within a comprehensive clinical context. If you have questions about the radiology report, please contact the office of the ordering clinician. COURSE & MEDICAL DECISION MAKING Pertinent Labs & Imaging studies reviewed. (See chart for details) This patient arrives secondary to accidental overdose that occurred early this morning. He states his family administered Narcan around 5:30 AM. The patient arrives stating he requires a work excuse.He initially declined films of the left shoulder and then later consented to this. He feels as though maybe he slept for a long period of time on the left shoulder. He denied previous left shoulder injury or hardware. He had no cardiopulmonary complaints. He states his overdose was accidental. He arrives hemodynamically stable and afebrile by private car. He had no concerning clinical findings and arrives satting 100% on room air. X-ray findings were negative for acute findings. He was referredto orthopedics for continued shoulder pain complaints. He was referred to primary care. I prescribed a Narcan kit for discharge. He was provided a work excuse. FINAL IMPRESSION 1. Accidental overdose, initial encounter 2. Encounter to obtain excuse from work 3. Left anterior shoulder pain Cata Cowart, BODY MAN 02/25/22 1541 Cosigned by Chuckie Casanova MD at 02/25/2022 5:31 PM EDT Associated attestation - Chuckie Casanova MD - 02/25/2022 5:31 PM EDT This chart was completed using voice recognition technology and may contain unintended errors documented in this encounter Plan of Treatment Not on file documented as of this encounter Procedures Procedure Name Priority Date/Time Associated Diagnosis Comments XR LEFT SHOULDER 5 VIEW TONI 02/25/2022 2:19 PM EDT documented in this encounter Results * XR LEFT SHOULDER 5 VIEW (02/25/2022 2:19 PM EDT) Anatomical Region Laterality Modality Shoulder Radiographic Lilli ging 02/25/2022 2:19 PM EDT Impressions 02/25/2022 2:37 PM EDT No acute bony abnormality of the shoulder. - Note: Radiology results need to be interpreted within a comprehensive clinical context. ??If you have questions about the radiology report, please contact the office of the ordering clinician. Narrative 02/25/2022 2:37 PM EDT XR LEFT SHOULDER 5 VIEW, ??02/25/2022 2:19 PM CLINICAL HISTORY: ??-ADDICTION PROBLEM COMPARISON: ??None. PROCEDURE COMMENTS: Routine views. FINDINGS: The glenohumeral and acromioclavicular joints are congruent. There is no fracture. Joint spaces overall well-maintained for age. No periostitis. Procedure Note Palak Ovalle MD - 02/25/2022 XR LEFT SHOULDER 5 VIEW, 02/25/2022 2:19 PM CLINICAL HISTORY: -ADDICTION PROBLEM COMPARISON: None. PROCEDURE COMMENTS: Routine views. FINDINGS: The glenohumeral and acromioclavicular joints are congruent.There is no fracture. Joint spaces overall well-maintained for age. No periostitis. IMPRESSION: No acute bony abnormality of the shoulder. - Note: Radiology results need to be interpreted within a comprehensiveclinical context. If you have questions about the radiology report, please contactthe office of the ordering clinician. Cata Cowart APRN IMG DIAGNOSTIC IMAGING ORD ERABLES Final Result documented in this encounter Visit Diagnoses Diagnosis Accidental overdose, initial encounter- Primary Encounter to obtain excuse from work Left anterior shoulder pain Pain in joint, shoulder region documented in this encounter
--- OUTSIDE RECORDS SUMMARY | 2024-05-29 16:00 | XMS_ITS | Referral Summary ---
Author Organization [facility] Address [address] [place] [address] Phone Care Team Providers Care Dynamite Cartridge Crimper Name Role Phone Unavailable Primary Care Provider Unavailabl e Allergies No known active allergies Medications traMADoL (ULTRAM) 50 mg Oral TabletIndication s:Sprain of left ankle, unspecified ligament, initial encounter Take 1 Tablet by mouth every 8 hours as needed for Pain. 20 Tablet 1 Active nalOXone (NARCAN) 4 mg/actuation Nasl [place], Non-Aerosol 0.1 mL by INTRANASAL route as needed for Opioid Reversal. 1 Each 1 2 Active Active Problems Problem Noted Date Diagnosed Date Sprain of left ankle 06/24/2021 Acute left ankle pain 06/24/2021 Social History Tobacco Use Types Packs/Day Years Used Date Smoking Tobacco: Never Smokeless Tobacco: Never Alcohol Use Standard Drinks/Week Comments Yes 0 (1 standard drink = 0.6 oz pur e alcohol) Sex and Gender Information Value Date Recorded Sex Assigned at Not on file Legal Sex Male 1:55 PM EST Gender Identity Not on file Sexual Orientation Not on file Last Filed Vital Signs Vital Sign Reading Time Taken Comments Blood Pressure 124/84 02/25/2022 1:24 PM EDT Pulse 80 02/25/2022 1:24 PM EDT Temperature 36.7 ??C (98 ??F) 02/25/2022 1:24 PM EDT Respiratory Rate 14 02/25/2022 1:24 PM EDT Oxygen Saturation 100% 02/25/2022 1:24 PM EDT Inhaled Oxygen Concentration - - Weight 93 kg (205 lb) 06/21/2021 11:36 AM EST Height 172.7 cm (5' 8 ) 06/21/2021 11:36 AM EST Body Mass Index 31.17 06/21/2021 11:36 AM EST Plan of Treatment Not on file Insurance MEDICAID MEDICAID
--- OUTSIDE RECORDS SUMMARY | 2024-05-29 16:00 | XMS_ITS | Encounter Summary ---
Author Organization [facility] 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 left ankle pain after slipping on wet surface last night. cpta:none Encounter Details Date Type Department Care Team (Late st Contact Info) Description 06/21/2021 11:34 AM EST - 06/21/2021 1:26 PM EST Emergency Del Emergency [address] [place] [address] Roz Alejandra MD [address] [place] [address] [place] [address] Closed nondisplaced avulsion fracture of left talus, initial encounter (Primary Dx) Discharge Disposition: Home or Self Care Social [...] on file Sexual Orientation Not on file COVID-19 Exposure Response Date Recorded In the last month, have you been in contact with someone who was confirmed or suspected to have Coronavirus / COVID-19? No / Unsure 06/21/2021 11:37 AM EST documented as of this encounter Last Filed Vital Signs Vital Sign Reading Time Taken Comments Blood Pressure 181/90 06/21/2021 11:39 AM EST Pulse 79 06/21/2021 11:36 AM EST Temperature 36.1 ??C (97 ??F) 06/21/2021 11:29 AM EST Respiratory Rate 15 06/21/2021 11:36 AM EST Oxygen Saturation 100% 06/21/2021 11:36 AM EST Inhaled Oxygen Concentration - - Weight 93 kg (205 lb) 06/21/2021 11:36 AM EST Height 172.7 cm (5' 8 ) 06/21/2021 11:36 AM EST Body Mass Index 31.17 06/21/2021 11:36 AM EST documented in this encounter Discharge Instructions * Discharge Instructions* Roz Alejandra MD - 06/21/2021 12:59 PM EST Non weight bearing on the left lower leg until seen by ortho. Refrain from work for 24 hours. Please continue to take all medications as previously prescribed. Follow up with orthopedics. Return to the emergency department for significant worsening of your presenting symptoms and specificallyinjury or focal weakness. * Attachments The following attachments cannot be sent through Care Everywhere. * Avulsion Fracture Discharge Instructions (Dutch) documented in this encounter Discharge Disposition Disposition Code Departure Means Destination Home or Self Correction documented in this encounter ED Notes * Juliane Flores RN - 06/21/2021 1:10 PM EST Short leg splint applied to LLE. Juliane Flores RN * Roz Alejandra MD - 06/21/2021 11:26 AM EST [facility] Emergency Medicine Note Date of Service: ?06/21/2021 Reason for Visit: Chief Complaint Patient presents with ??? Ankle Pain amb to ed with c.o. left ankle pain after slipping on wet surface last night. cpta:none Patient History HPI: Artie Drummond is a 30 y.o. male who presents to the emergency department with complaints of ankle pain. Patient reports symptoms started last night. Patient walking and stepped on ice. Patient reports twisting his ankle. Since then, patient having pain and swelling along the lateral aspect of the ankle. He is able to ambulate. Pain is moderate in terms of severity. Patient did not strike his head or lose consciousness. He has not taken any medication for the symptoms. At this time, he does not relate any other symptoms or factors. PMH: Nursing notes reviewed PSH: Nursing notes reviewed FH: Nursing notes reviewed MEDS: Nursing notes and chart reviewed ALLERGIES: Nursing notes and chart reviewed History reviewed. No pertinent past medical history. History reviewed. No pertinent surgical history. Artie Drummond @[email or web address]@ Previous Medications No medications on file Allergies: Allergies as of 06/21/2021 ??? (No Known Allergies) Review of Systems ROS: Pertinent positive and negative findings as documented in the HPI otherwise all other systems were reviewed and were negative. Physical Exam Vitals: 06/21/21 1139 BP: 181/90 Pulse: Resp: Temp: SpO2: General: Well developed, well nourished, cooperative to physical examination HEENT: Normocephalic/Atraumatic, PERRL, EOMI, no conjunctival injection/icterus/discharge, mucous membranes moist Neck: Supple Resp: No respiratory distress, no retractions, no abnormal breathing pattern noted Musculoskeletal: appropriate muscle bulk, grossly full ROM, no obvious deformity, left foot, tenderness palpation of the lateral malleolus and the dorsal lateral surface of the foot Neuro: AAO, GCS 15, moves all 4 extremities Skin: No rash, dry, no signs of trauma Extremities: No cyanosis, good capillary refill, good pulses, no edema Psych: Appropriate mood and affect, conversant, answers appropriately Diagnostic Studies Results for orders placed or performed during the hospital encounter of 06/21/21 XR ANKLE LEFT AP LATERAL AND OBLIQUE Narrative XR ANKLE LEFT AP LATERAL AND OBLIQUE, 06/21/2021 11:56 AM CLINICAL HISTORY: -ANKLE PAIN COMPARISON: None. PROCEDURE COMMENTS: XR ANKLE LEFT AP LATERAL AND OBLIQUE FINDINGS: There is a 3 mm flake-like osseous density seen dorsal to the neck of the talus compatible with an avulsion injury that could be acute. There is some associated soft tissue swelling There are no other fractures or abnormalities. Joint spaces overall well-maintained. No periostitis. Impression Flake-like avulsion dorsal to the neck of the talus which could be acute. - Note: Radiology results need to be interpreted within a comprehensive clinical context. If you have questions about the radiology report, please contact the office of the ordering clinician. XR FOOT LEFT AP LATERAL AND OBLIQUE Narrative XR FOOT LEFT AP LATERAL AND OBLIQUE: 06/21/2021 11:56 AM CLINICAL HISTORY: Fall last night.-ANKLE PAIN THAT RADIATES towards 3-5 metatarsals COMPARISON: No priors. PROCEDURE COMMENTS: Routine views per the ordered protocol. FINDINGS: No acute osseous or articular abnormality. Similar size small bony spurs extend off the dorsal distal talus and dorsal navicular. No localized soft tissue swelling. Impression 1. No acute finding. - Note: Radiology results need to be interpreted within a comprehensive clinical context. If you have questions about the radiology report, please contact the office of the ordering clinician. Emergency Department Procedures 1394.81 Medical Decision Making Considering the patient condition and presentation, standard [facility] airborne precautions were taken. All care plans were discussed and agreed upon. Based upon history and physical examination, there was concern for ankle sprain or fracture. Patient with the above findings. He is placed in a short leg splint and given crutches. He is referred to orthopedics. Risks, benefits, and alternatives were discussed. The patient was found to be hemodynamically stable and afebrile. They were well appearing during clinical evaluation. As such, the patient was deemed a good candidate for continued management in the outpatient setting. Patient was advised to follow up with primary physicians, to review discharge instructions, and to return for new and or worsened symptomology. Summary of Treatment in ED: Medications ibuprofen (ADVIL;MOTRIN) tablet 600 mg (600 mg Oral Given 06/21/21 1144) Impression 1. Closed nondisplaced avulsion fracture of left talus, initial encounter Roz Alejandra MD MS This chart was completed using voice recognition technology and may contain unintended errors Roz Alejandra MD 06/21/21 1259 documented in this encounter Plan of Treatment Not on file documented as of this encounter Procedures Procedure Name Priority Date/Time Associated Diagnosis Comments XR FOOT LEFT AP LATERAL AND OBLIQUE TONI 06/21/2021 11:56 AM EST XR ANKLE LEFT AP LATERAL AND OBLIQUE TONI 06/21/2021 11:56 AM EST documented in this encounter Results * XR FOOT LEFT AP LATERAL AND OBLIQUE (06/21/2021 11:56 AM EST) Anatomical Region Laterality Modality Foot Radiographic Lilli ging 06/21/2021 11:5 6 AM EST Impressions 06/21/2021 12:29 PM EST 1. No acute finding. - Note: Radiology results need to be interpreted within a comprehensive clinical context. ??If you have questions about the radiology report, please contact the office of the ordering clinician. Narrative 06/21/2021 12:29 PM EST XR FOOT LEFT AP LATERAL AND OBLIQUE: ??06/21/2021 11:56 AM CLINICAL HISTORY: Fall last night.-ANKLE PAIN THAT RADIATES towards 3-5 metatarsals COMPARISON: No priors. PROCEDURE COMMENTS: Routine views per the ordered protocol. FINDINGS: No acute osseous or articular abnormality. Similar size small bony spurs extend off the dorsal distal talus and dorsal navicular. No localized soft tissue swelling. Procedure Note Zoya Martin MD - 06/21/2021 XR FOOT LEFT AP LATERAL AND OBLIQUE: 06/21/2021 11:56 AM CLINICAL HISTORY: Fall last night.-ANKLE PAIN THAT RADIATES towards 3-5 metatarsals COMPARISON: No priors. PROCEDURE COMMENTS: Routine views per the ordered protocol. FINDINGS: No acute osseous or articular abnormality. Similar size small bony spursextend off the dorsal distal talus and dorsal navicular. No localized softtissue swelling. IMPRESSION: 1. No acute finding. - Note: Radiology results need to be interpreted within a comprehensiveclinical context. If you have questions about the radiology report, please contactthe office of the ordering clinician. us Roz Alejandra MD IMG DIAGNOSTIC IMAGING ORDERABLE S Final Result * XR ANKLE LEFT AP LATERAL AND OBLIQUE (06/21/2021 11:56 AM EST) Anatomical Region Laterality Modality Ankle Radiographic Lilli ging 06/21/2021 11:5 6 AM EST Impressions 06/21/2021 12:24 PM EST Flake-like avulsion dorsal to the neck of the talus which could be acute. - Note: Radiology results need to be interpreted within a comprehensive clinical context. ??If you have questions about the radiology report, please contact the office of the ordering clinician. Narrative 06/21/2021 12:24 PM EST XR ANKLE LEFT AP LATERAL AND OBLIQUE, ??06/21/2021 11:56 AM CLINICAL HISTORY: ??-ANKLE PAIN COMPARISON: ??None. PROCEDURE COMMENTS: XR ANKLE LEFT AP LATERAL AND OBLIQUE FINDINGS: There is a 3 mm flake-like osseous density seen dorsal to the neck of the talus compatible with an avulsion injury that could be acute. There is some associated soft tissue swelling There are no other fractures or abnormalities. Joint spaces overall well-maintained. No periostitis. Procedure Note Terrance Yi MD - 06/21/2021 XR ANKLE LEFT AP LATERAL AND OBLIQUE, 06/21/2021 11:56 AM CLINICAL HISTORY: -ANKLE PAIN COMPARISON: None. PROCEDURE COMMENTS: XR ANKLE LEFT AP LATERAL AND OBLIQUE FINDINGS: There is a 3 mm flake-like osseous density seen dorsal to theneck of the talus compatible with an avulsion injury that could be acute. There issome associated soft tissue swelling There are no other fractures or abnormalities. Joint spaces overall well-maintained. No periostitis. IMPRESSION: Flake-like avulsion dorsal to the neck of the talus which could be acute. - Note: Radiology results need to be interpreted within a comprehensiveclinical context. If you have questions about the radiology report, please contactthe office of the ordering clinician. Roz Alejandra MD IM DIAGNOSTIC IMAGING ORDERABLE S Final Result documented in this encounter Visit Diagnoses Diagnosis Closed nondisplaced avulsion fracture of left talus, initial encounter- Primary documented in this encounter Administered Medications Inactive Administered Medications - up to 1 most recent administrations Medication Order MAR Action Action Date Dose Rate Site ibuprofen (ADVIL;MOTRIN) tablet 600 mg 600 mg, Oral, ONCE, 1 dose, On 06/21/21 at 1145, If patient receiving scheduled ibuprofen (Caldolor) or ketorolac IV, hold oral ibuprofen until IV therapy completed. Given 06/21/2021 11:44 AM EST 600 mg documented in this encounter Active and Recently Administered Medications Times are shown in EST. Scheduled Medication Order 06/19/2021 06/20/2021 06/21/2021 ibuprofen (ADVIL;MOTRIN) tablet 600 mg (COMPLETED) 600 mg, Oral, ONCE, 1 dose, On 06/21/21 at 1145, If patient receiving scheduled ibuprofen (Caldolor) or ketorolac IV, hold oral ibuprofen until IV therapy completed. 1144 (Given - Provid er: Juliane Flores RN) documented in this encounter Orders Medications Ordered That Jono ht Not Have Been Administered Count Last Ordered Date First Ordered Date ibuprofen (ADVIL;MOTRIN) tablet 600 mg 1 Nursing Count Last Ordered Date First Orde red Date APPLY ICE TO AFFECTED AREA 1 06/21/2021 ED DME CRUTCHES 1 06/21/2021 SPLINT, CUSTOM 1 06/21/2021 documented in this encounter
--- OUTSIDE RECORDS SUMMARY | 2024-05-29 16:00 | XMS_ITS | Clinical Summary ---
Author Organization [facility] Address [facility] [place] [address] Care Team Providers Care Hvac Service Manager Name Role Phone Pcp, No Primary Care Provider [phone] Source Comments This information has been disclosed to you from confidential records protectedfrom disclosure by state law. You shall make no further disclosure of thisinformation without the specific, written, and informed release of theindividual to whom it pertains, or as otherwise permitted by law. A generalauthorization for the release of medical or other information is not sufficientfor the purposes of therelease of HIV test results or diagnoses. [id number] Allergies No known active allergies Medications acetaminophen (TYLENOL EXTRA STRENGTH) 500 MG tabletIndication s:Acute post-traumatic headache, not intractable Take 1 tablet (500 mg total) by mouth every 6 hours as needed. 100 tablet 03/26/2023 Active proCHLORPERazine (COMPAZINE) 5 MG tabletIndication s:Acute post-traumatic headache, not intractable Take 1 tablet (5 mg total) by mouth every 6 hours as needed for Nausea. 12 tablet 03/26/2023 Active Immunizations Name Administration Dates Next Due tdap 03/23/2023 Social History Tobacco Use Types Packs/Day Years Used Date Smoking Tobacco: Never Smokeless Tobacco: Never Tobacco Cessation:Counseling Given: Not Answered Alcohol Use Standard Drinks/Week Comments Never 0 (1 standard drink = 0.6 oz pur e alcohol) AUDIT-C Answer Date Recorded Q1: How often do you have a drink containing alc ohol? Patient declined 03/25/2023 Q2: How many drinks containi ng alcohol do you have on a typical day when you are drinking? Patient declined 03/25/2023 Q3: How often do you have si x or more drinks on one occasion? Patient declined 03/25/2023 Sex and Gender Information Value Date Recorded Sex Assigned at Not on file Legal Sex Male 10:09 PM EDT Gender Identity Not on file Sexual Orientation Not on file Last Filed Vital Signs Vital Sign Reading Time Taken Comments Blood Pressure 133/93 03/26/2023 10:00 AM EDT Pulse 86 03/26/2023 10:00 AM EDT Temperature 37.3 ??C (99.1 ??F) 03/26/2023 1 0:00 AM EDT Respiratory Rate 20 03/26/2023 10:0 0 AM EDT Oxygen Saturation 98% 03/26/2023 10: 00 AM EDT Inhaled Oxygen Concentration 98% 10:00 AM EDT Weight 77.9 kg (171 lb 11.8 oz) 023 10:00 AM EDT Height 175.3 cm (5' 9 ) 03/26/2023 10:0 0 AM EDT Body Mass Index 25.36 03/26/2023 10:00 AM EDT Plan of Treatment Health Maintenance Due Date Last Done Comments Hepatitis C Screening (MyChart) 1992 Syphilis Screening 1992 Chlamydia Screening 2010 Depression Screening 2010 Gonorrhea Screening 2010 HIV Screening 2010 Immunization: Hepatitis A (1 of 2 - Risk 2-dose series) 11/12/2011 Immunization: Hepatitis B (1 of 3 - 19+ 3-dose series) 11/12/2011 Immunization: COVID-19 ( season) 2024 Immunization: Influenza (MyChart) (#1) 2024 Alcohol Misuse Screening 03/23/2024 03/23/2023 Immunization: DTaP/Tdap/Td ( 3 - Td or Tdap) 03/23/2033 03/23/2023, 12/24/1996 Immunization: Pneumococcal Aged Out N o longer eligible based on patient's age to complete this topic Advance Directives For more information, please contact: [phone] * Full Code (Latest Code Status on File) Date Activated Date Inactivated Comments 03/24/2023 9:30 AM 03/25/2023 7:06 PM Care Teams Hvac Service Manager Relationship Specialty Start Date End Date Pcp, No No Address PCP - General 03/23/23
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
--- OUTSIDE RECORDS SUMMARY | 2024-05-29 16:00 | XMS_ITS | Encounter Summary ---
Author Organization [facility] [place] [address] Care Team Providers Care Wire Setter Name Role Phone Unavailable Primary Care Provider Unavailabl e Encounter Details Date Type Department Care Team (Latest Contact Info) Description 06/21/2021 Travel Social History Tobacco Use Types Packs/Day Years [...] AM EST documented as of this encounter Plan of Treatment Not on file documented as of this encounter Visit Diagnoses Not on filedocumented in this encounter
--- OUTSIDE RECORDS SUMMARY | 2024-05-29 16:00 | XMS_ITS | Encounter Summary ---
Author Organization [facility] Address [address] [place] [address] Care Team Providers Care Winder Hand Name Role Phone Unavailable Primary Care Provider Unavailabl e Reason for Visit * Reason Onset Date Comments Medication Refill 06/24/2021 Encounter Details Date Type Department Care Team (Late st Contact Info) Description 06/24/2021 [place] [address] Tonya Barber, NEGRITO Medication Refill Social History Tobacco Use Types Packs/Day Years [...] AM EST documented as of this encounter Ordered Prescriptions Prescription Sig Dispense Quantity Refills Last Filled Start Date End Date traMADoL (ULTRAM) 50 mg Oral TabletIndications:S prain of left ankle, unspecified ligament, initial encounter Take 1 Tablet by mouth every 8 hours as needed for Pain. 20 Tablet 06/24/2021 documented in this encounter Plan of Treatment Not on file documented as of this encounter Visit Diagnoses Diagnosis Sprain of left ankle, unspecified ligament, initial encounter- Primary documented in this encounter
--- OUTSIDE RECORDS SUMMARY | 2024-05-29 16:00 | XMS_ITS | Encounter Summary ---
Author Organization [facility] [place] [address] Care Team Providers Care First Crusher Name Role Phone Unavailable Primary Care Provider Unavailabl e Reason for Visit * Reason Comments Drug Overdose Pt was pulled out of a car unresponsive - Pt arrives with PD for clearance due to BP and heart rate 2mg Narcan nasally pt arrives alert and oriented Encounter Details Date Type Department Care Team (Late st Contact Info) Description 02/03/2017 3:30 PM EDT - 02/03/2017 6:00 PM EDT Emergency [facility] Emergency [address] [place] [id number] Veronica Dixon MD [address] [place] [id number] Heroin overdose, accidental or unintentional, initial encounter (Primary Dx); Tachycardia Discharge Disposition: Home or Self Care Social [...] Sign Reading Time Taken Comments Blood Pressure 176/110 02/03/2017 5:50 PM EDT Pulse 117 02/03/2017 5:50 PM EDT Temperature 36.9 ??C (98.5 ??F) 02/03/2017 3:35 PM ED T Respiratory Rate 13 02/03/2017 5:50 PM EDT Oxygen Saturation 97% 02/03/2017 5:15 PM EDT Inhaled Oxygen Concentration - - Weight 68 kg (150 lb) 02/03/2017 3:35 PM EDT Height 180.3 cm (5' 11 ) 02/03/2017 3:35 PM EDT Body Mass Index 20.92 02/03/2017 3:35 PM EDT documented in this encounter Discharge Instructions * Discharge Instructions* Veronica Dixon MD - 02/03/2017 5:47 PM EDT Rest and plenty of fluid Consider outpatient rehabilitation Return as needed documented in this encounter Discharge Disposition Disposition Code Departure Means Destination Home or Self Custodial documented in this encounter Progress Notes * Zoya To - 02/03/2017 5:45 PM EDT 02/03/17 1742 Pastoral Care Encounter Visited With Patient Date of visit 02/03/17 Visit Type Initial Need to follow-up? Yes Judaism Needs Prayer Pastoral Care Issues Comments prayer for protection against heroin, he was a little teary eyed and gave me ahug, wants to not do heroin again and I asked him not to do it by himself but to get help. will keep him in prayer Pastoral Care Plan/Intervention Plan/Intervention Spiritual-Emotional needs addressed;Active Listening;Prayer Plan/Intervention Comments Zoya 02/03/2017 Zoya To documented in this encounter ED Notes * Nataly Dominguez, TATE - 02/03/2017 4:39 PM EDT aware of BP and heart rate- No new orders at this time. * Kishor Hassan RN - 02/03/2017 3:32 PM EDT Bed: AC16 Expected date: Expected time: Means of arrival: Comments: Logan * Veronica Dixon MD - 02/03/2017 3:30 PM EDT Chief Complaint Patient presents with ??? Drug Overdose Pt was pulled out of a car unresponsive - Pt arrives with PD for clearance due to BP and heart [id number] Narcan nasally pt arrives alert and oriented Patient is a 26 years old white male who is brought into the ED by police patrol officer after heroin overdose. Patient was a passenger in a vehicle. Patient snorts heroin. He also admits to drinking beer. He become unconscious while his ex-girlfriend was driving. She called 911. Patient was given Narcan nasally by EMS. He become awakened. Patient was taken to intermediate initially. However he was tachycardic when he was at intermediate. His blood pressure was also elevated. Due to the tachycardia and hypertension patient is taken to the ED for evaluation. Patient himself had no medical complaint. He denies chest pain or discomfort. He has no shortness of breath. He admits to alcohol use along with heroin today.He denies any other drug ingestion. Drug Overdose Associated symptoms: no abdominal pain, no chest pain, no cough, no diarrhea, no fever, no nausea, no rash, no shortness of breath and no vomiting No Known Allergies Home Medications: Prior to Admission medications Not on File Past Medical History: History reviewed. No pertinent past medical history. Social History: reports that he has never smoked. He has never used smokeless tobacco. He reports that he drinks alcohol. He reports that he uses drugs. Family History: No family history on file. Surgical History: History reviewed. No pertinent surgical history. Review of Systems Constitutional: Negative for chills and fever. HENT: Negative. Eyes: Negative. Respiratory: Negative for cough and shortness of breath. Cardiovascular: Negative for chest pain, palpitations and leg swelling. Gastrointestinal: Negative for abdominal pain, diarrhea, nausea and vomiting. Genitourinary: Negative for dysuria and frequency. Musculoskeletal: Negative. Skin: Negative for rash. Neurological: Negative. Psychiatric/Behavioral: Negative. All other systems reviewed and are negative. Blood pressure (!) 176/110, pulse 117, temperature 98.5 ??F (36.9 ??C), resp. rate 13, height 5' 11 (1.803 m), weight 150 lb (68 kg), SpO2 97 %. Physical Exam Constitutional: He is oriented to person, place, and time. He appears well- developed and well-nourished. No distress. HENT: Mouth/Throat: Oropharynx is clear and moist. Pupils are equal and reactive. Conjunctiva are clear. Oral mucosa is moist. Posterior pharynx is within normal limits. No exudate noted. Neck supple without meningismus. No cervical adenopathy. Eyes: Conjunctivae and EOM are normal. Pupils are equal, round, and reactive to light. Neck: Normal range of motion. Neck supple. Cardiovascular: Rate is regular and tachycardia Pulmonary/Chest: Lungs sounds are clear with good bilateral breath sounds. Breath sound are equal and symmetrical. Respiration nonlabored. Abdominal: Soft. Bowel sounds are normal. He exhibits no distension. There is no tenderness. Musculoskeletal: Normal range of motion. He exhibits no edema. Lymphadenopathy: He has no cervical adenopathy. Neurological: He is alert and oriented to person, place, and time. Skin: Skin is warm and dry. No rash noted. Psychiatric: He has a normal mood and affect. Nursing note and vitals reviewed. 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 EKG reveals sinus rhythm, tachycardia rate of 128. There is right bundle branch block. There is no old EKG for comparison. ED Course: Appropriate laboratory and radiology studies reviewed Patient presents to ED with history of heroin overdose responding to Narcan prior to arrival. Patient had tachycardia. Blood pressure was elevated but he denies any symptoms. He is well-appearing in the ED. nuclear monitoring technician reveals sinus tachycardia. There is elevated blood pressure as noted. He is otherwise asymptomatic. There is no chest pain. There is no neurological symptom. Patient is observed in the ED for 2 hours. He is given a dose of Lopressor 25 mg by mouth due to persistent tachycardia after 90 minute. There is improvement of his tachycardia noted. He remained asymptomatic on my repeat assessment. The patient is discharged to custody of police patrol officer. He is advised to follow up with primary care physician. All questions were answered and the patient agrees with the treatment plan. Criteria for returning to the Emergency Department was discussed and the patient verbalized an understanding. The patient is being discharged in stable condition. ED Clinical Impression: Heroin overdose, accidental or unintentional, initial encounter (primary encounter diagnosis) Tachycardia Critical Care time Condition at Discharge/Transfer from Department: Stable This chart was completed using voice recognition technology and may contain unintended errors Veronica Dixon MD 02/03/17 [id number] documented in this encounter Plan of Treatment Not on file documented as of this encounter Procedures Procedure Name Priority Date/Time Associated Diagnosis Comments EK EKG 12 LEAD STAT 02/03/2017 3:36 PM EDT documented in this encounter Results * EK EKG 12 LEAD (02/03/2017 3:36 PM EDT) Anatomical Region Laterality Modality Electrocardiogra phy 02/03/2017 3:49 PM EDT Impressions 02/03/2017 4:24 PM EDT ? Stationary ECG Study ? [facility] ? Interpretive Statements ? SINUS TACHYCARDIA RIGHT BUNDLE BRANCH BLOCK [120+ ms QRS DURATION, UPRIGHT V1, 40+ ms S IN I/aVL/V4/V5/V6] MINIMAL VOLTAGE CRITERIA FOR LVH, CONSIDER NORMAL VARIANT [MEETS CRITERIA IN ONE OF: R(aVL), S(V1), R(V5), R(V5/V6)+S(V1)] SEPTAL MYOCARDIAL INFARCTION [40+ ms Q WAVE IN V1/V2], PROBABLY OLD Follow up tracing suggested Electronically Signed On 02-03-2017 16:23:59 EDT by Shankar Odom MD Narrative Procedure Note Shankar Odom MD - 02/03/2017 IM[address] ECG Study [facility] Interpretive Statements SINUS TACHYCARDIA RIGHT BUNDLE BRANCH BLOCK [120+ ms QRS DURATION, UPRIGHT V1, 40+ ms S IN I/aVL/V4/V5/V6] MINIMAL VOLTAGE CRITERIA FOR LVH, CONSIDER NORMAL VARIANT [MEETS CRITERIAIN ONE OF: R(aVL), S(V1), R(V5), R(V5/V6)+S(V1)] SEPTAL MYOCARDIAL INFARCTION [40+ ms Q WAVE IN V1/V2], PROBABLY OLD Follow up tracing suggested Electronically Signed On 02-03-2017 16:23:59 EDT by Shankar Odom MD Veronica Dixon MD IMG ECG ORDERABLES Final Result documented in this encounter Visit Diagnoses Diagnosis Heroin overdose, accidental or unintentional, initial encounter (HCC)- Primary Tachycardia Tachycardia, unspecified documented in this encounter Administered Medications Inactive Administered Medications - up to 1 most recent administrations Medication Order MAR Action Action Date Dose Rate Site metoprolol (LOPRESSOR) tablet 25 mg 25 mg, Oral, ONCE, 1 dose, On Mon02/03/17 at 1715 Given 02/03/2017 5:14 PM EDT 25 mg documented in this encounter Active and Recently Administered Medications Times are shown in EDT. Scheduled Medication Order 02/01/2017 02/02/2017 02/03/2017 metoprolol (LOPRESSOR) tablet 25 mg (COMPLETED) 25 mg, Oral, ONCE, 1 dose, On Mon02/03/17 at 1715 1714 (Given - Provid er: Carolann Combs) documented in this encounter Orders Medications Ordered That Jono ht Not Have Been Administered Count Last Ordered Date First Ordered Date metoprolol (LOPRESSOR) tablet 25 mg 1 02/03 documented in this encounter
--- OUTSIDE RECORDS SUMMARY | 2024-05-29 16:00 | XMS_ITS | Clinical Summary ---
Author Organization [facility] Address [address] [place] [address] Phone Care Team Providers Care Label Drier Name Role Phone Unavailable Primary Care Provider Unavailabl e Allergies No known active allergies Medications traMADoL (ULTRAM) 50 mg Oral TabletIndication s:Sprain of left ankle, unspecified ligament, initial encounter Take 1 Tablet by mouth every 8 hours as needed for Pain. 20 Tablet 1 Active nalOXone (NARCAN) 4 mg/actuation Nasl [place], Non-Aerosol 0.1 mL by INTRANASAL route as [...] on file Sexual Orientation Not on file Obstetrics History Last Filed Vital Signs Vital Sign Reading [...] 06/21/2021 11:36 AM EST Plan of Treatment Health Maintenance Due Date Last Done Comments Annual Wellness Exam 1994 DTaP/TDaP/Td (2 - Tdap) 11/12/2011 12/24/1996 Hepatitis B Vaccine (1 of 3 - 19+ 3-dose series) 11/12/2011 COVID-19 Vaccine (2023-2 5 season) 2024 Influenza Vaccine (#1) 2024 Pneumococcal Vaccine 0-64 Aged Out No longer eligible based on patient's age to complete this topic Insurance [id number] [place] [address] MEDICAID [facility] MEDICAID
--- OUTSIDE RECORDS SUMMARY | 2024-05-29 16:00 | XMS_ITS | Encounter Summary ---
Author Organization [facility] Address [address] [place] [address] Care Team Providers Care Animal Husbandry Manager Name Role Phone Unavailable Primary Care Provider Unavailabl e Reason for Visit * Reason Comments Pain Encounter Details Date Type Department Care Team (Late st Contact Info) Description 06/24/2021 9:45 [place] [address] Mario Dumont MD [address] [place] [address] Acute left ankle pain (Primary Dx); Sprain of left ankle, unspecified ligament, initial encounter Social History Tobacco Use Types Packs/Day Years [...] AM EST documented as of this encounter Progress Notes * Mario Dumont MD - 06/24/2021 9:45 AM EST Images from the original note were not included. Mario Dumont MD [facility] [phone] Artie Drummond CC: Left ankle injury 30 y.o. male Injured Left Ankle ankle three days ago. Referred to me by [facility] Mechanism: Inversion mechanism Reports pain and swelling left foot and ankle Able to bear weight has not tried PHYSICAL EXAMINATION: General: Well appearing with appropriate affect. No acute distress. Skin: Skin is warm and dry. Color natural. See below for specific extremity. Neuro: Alert and oriented to person, place and time. Normal neurosensory response to touch. Pulmonary: Chest expansion appears symmetric and unlabored. Cardiovascular: No signs of peripheral edema. Lymphatic: No signs of lymphangitis. Musculoskeletal: Left ankle: Foot Shape appears plantigrade TTP in sinus tarsi. Medial tenderness none Swelling lateral and anterior Achilles intact. Calf soft Palpable DP and brisk capillary refill No gross dermatomal deficits Motor strength at least 4/5 Anterior drawer negative Contralateral exam is nontender with palpation. Full motion and strength. No instabilities. XRAYS: Views of the left foot and ankle from [place] dated 06/21 shows intact ankle mortiseand syndesmosis a dorsal TN avulsion IMPRESSION: Left ankle sprain PLAN: WBAT in boot for the next 3-4 weeks. May use crutches for assistance. HEP given today Counseled on the natural history of ankle sprains, expectations over next 6-8 weeks, swelling control and range of motion. Work plan: Off for 4 weeks as he has to wear steel toes at work Formal physical therapy indicated: No Follow up: As needed Mario Dumont MD [facility] [phone] 06/25/2021 *This note was generated using voice recognition technology. Unintentional errors may be present asa result. documented in this encounter Plan of Treatment Scheduled Orders Name Type Priority Associated Diagnoses Orde r Schedule SC PNEUMA/VAC WALK BOOT PRE OTS SC Charge Routine Acute left ankle pain Sprain of left ankle, unspecified ligament, initial encounter Ordered: 06/24/2021 documented as of this encounter Visit Diagnoses Diagnosis Acute left ankle pain- Primary Sprain of left ankle, unspecified ligament, initial encounter documented in this encounter
--- OUTSIDE RECORDS SUMMARY | 2024-05-29 16:01 | XMS_ITS | Encounter Summary ---
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 COMPARISON: None. FINDINGS: Medical Devices: None. Heart and Mediastinum: Cardiomediastinal silhouette is within normallimits. Lungs and Pleura: Lungs are clear. Bones and soft tissues: No acute abnormalities. IMPRESSION: No acute cardiopulmonary abnormality. Report Verified by: Wes Ohara MD at 03/23/2023 11:44 PM EDT us Chucky New MD IMG DIAGNOSTIC IMAGING ORDERAB LES Final Result documented in this encounter Visit Diagnoses Diagnosis Traumatic head injury with multiple lacerations, initial encounter- Primary documented in this encounter Administered Medications Inactive Administered Medications - up to 3 most recent administrations Medication Order MAR Action Action Date Dose Rate Site acetaminophen (TYLENOL) tablet 650 mg 650 mg, Oral, Every 6 hours PRN, mild pain (NRS 1-3), Body Temperature > 101F, Starting on Mon03/24/23 at 0959, Maximum dose of acetaminophen is 4000 mg (4 grams) from all sources in 24 hours. Given 03/25/2023 11:19 AM EDT 650 mg Given 03/25/2023 5:09 AM EDT 650 mg Given 03/24/2023 8:48 PM EDT 650 mg bacitracin zinc-polymyxin B (POLYSPORIN) topical ointment Topical, Once, On Mon03/24/23 at 0725, For 1 dose, Apply to: Other Given 03/24/2023 8:43 AM EDT bisacodyL (DULCOLAX) suppository 10 mg 10 mg, Rectal, Daily as needed, Constipation, Starting on Mon03/24/23 at 0957 cefepime (MAXIPIME) 2 g in sodium chloride 0.9% 100 mL IVPB ADDaptor 2 g, Intravenous, Administer over 30 Minutes, Once, On Mirtha 03/23/23 at 2333, For 1 dose, Use ADDaptor product - Mix Thoroughly Before Administration, Indication? Prophylaxis-Surgical, Site of diagnosed infections (select all that apply): WASTEWATER PROCESS ENGINEER New Bag 03/24/2023 12:18 AM EDT 2 g 200 mL/hr cephALEXin (KEFLEX) capsule 250 mg 250 mg, Oral, 4 times a day, First dose on Mon03/24/23 at 0900, For 5 days Given 03/25/2023 9:54 AM EDT 250 mg Given 03/25/2023 5:09 AM EDT 250 mg Given 03/24/2023 10:38 PM EDT 250 mg HYDROmorphone (DILAUDID) injection Syrg 1 mg 1 mg, Intravenous, Once, On Mirtha 03/23/23 at 2227, For 1 dose Given 03/23/2023 10:32 PM EDT 1 mg HYDROmorphone (DILAUDID) injection Syrg 1 mg 1 mg, Intravenous, Once, On Mon03/24/23 at 0544, For 1 dose Given 03/24/2023 5:45 AM EDT 1 mg levETIRAcetam (KEPPRA) tablet 500 mg 500 mg, Oral, Once, On Mon03/24/23 at 0358, For 1 dose Given 03/24/2023 5:15 AM EDT 500 mg lidocaine-EPINEPHrine 2 %-1:200,000 injection Starting on Mon03/24/23 at 0735, For 1 dose, Created by cabinet override Given 03/24/2023 8:43 AM EDT ondansetron (ZOFRAN) injection 4 mg 4 mg, Intravenous, Every 6 hours PRN, Nausea and/or Vomiting, Starting on Mon03/24/23 at 0957 senna-docusate (SENNA-S) 8.6-50 mg per tablet 1 tablet 1 tablet, Oral, 2 times daily, First dose on Mon03/24/23 at 0958 vancomycin (VANCOCIN) 2,000 mg in sodium chloride 0.9 % 500 mL IVPB 2,000 mg (25 mg/kg ? 80 kg), Intravenous, Administer over 120 Minutes, Once, Contact pharmacy if there is a question/concern of whether vancomycin should be given based on serum drug levels., Indication? Prophylaxis-Surgical, Site of diagnosed infections (select all that apply): WASTEWATER PROCESS ENGINEER New Bag 03/24/2023 12:58 AM EDT 2,000 mg 250 mL/hr documented in this encounter Active and Recently Administered Medications Times are shown in EDT. Scheduled Medication Order 03/23/2023 03/24/2023 03/25/2023 bacitracin zinc-polymyxin B (POLYSPORIN) topical ointment (COMPLETED) Topical, Once, On Mon03/24/23 at 0725, For 1 dose, Apply to: Other 8943 (Given - Provider: Agustina Rios RN - Comment: given by ) cefepime (MAXIPIME) 2 g in sodium chloride 0.9% 100 mL IVPB ADDaptor (COMPLETED) 2 g, Intravenous, Administer over 30 Minutes, Once, On Mirtha 03/23/23 at 2333, For 1 dose, Use ADDaptor product - Mix Thoroughly Before Administration, Indication? Prophylaxis-Surgical, Site of diagnosed infections (select all that apply): WASTEWATER PROCESS ENGINEER 0018 (New Bag - Provider: Edvin Soto RN)0053 (Stopped - Provider: Edvin Soto RN) cephALEXin (KEFLEX) capsule 250 mg 250 mg, Oral, 4 times a day, First dose on Mon03/24/23 at 0900, For 5 days 0707 (Given - Provider: Sergio Richardson RN)1605 (Given - Provider: David Taylor RN)2238 (Given - Provider: Jose Boyce RN)2240 (Canceled Entry - Provider: Jose Boyce RN - Comment: re timed) 0509 (Given - Provider: Jose Boyce RN)0954 (Given - Provider: Irene Patton RN)1300 (Due - Provider: Jose Boyce RN) HYDROmorphone (DILAUDID) injection Syrg 1 mg (COMPLETED) 1 mg, Intravenous, Once, On Mirtha 03/23/23 at 2227, For 1 dose 2232 (Given - Provider: Meghan Aguero RN) HYDROmorphone (DILAUDID) injection Syrg 1 mg (COMPLETED) 1 mg, Intravenous, Once, On Mon03/24/23 at 0544, For 1 dose 0545 (Given - Provider: Sergio Richardson RN) levETIRAcetam (KEPPRA) tablet 500 mg (COMPLETED) 500 mg, Oral, Once, On Mon03/24/23 at 0358, For 1 dose 0515 (Given - Provider: Sergio Richardson RN) lidocaine-EPINEPHrine 1 %-1:100,000 injection 5 mL 5 mL, Intradermal, Once, On Mon03/24/23 at 0725, For 1 dose 0844 (Canceled Entry - Provider: Agustina Rios RN) senna-docusate (SENNA-S) 8.6-50 mg per tablet 1 tablet 1 tablet, Oral, 2 times daily, First dose on Mon03/24/23 at 0958 0937 (Not Given - Provider: Sergio Richardson RN - Reason: Patient/family refused)2047 (Not Given - Provider: Jose Boyce RN - Reason: Patient/family refused) 0954 (Not Given - Provider: Irene Patton RN - Reason: Patient/family refused) vancomycin (VANCOCIN) 2,000 mg in sodium chloride 0.9 % 500 mL IVPB (COMPLETED) 2,000 mg (25 mg/kg ? 80 kg), Intravenous, Administer over 120 Minutes, Once, Contact pharmacy if there is a question/concern of whether vancomycin should be given based on serum drug levels., Indication? Prophylaxis-Surgical, Site of diagnosed infections (select all that apply): WASTEWATER PROCESS ENGINEER 0058 (New Bag - Provider: Edvin Soto RN)0343 (Stopped - Provider: Sergio Richardson RN) PRN Medication Order 03/23/2023 03/24/2023 03/25/2023 acetaminophen (TYLENOL) tablet 650 mg 650 mg, Oral, Every 6 hours PRN, mild pain (NRS 1-3), Body Temperature > 101F, Starting on Mon03/24/23 at 0959, Maximum dose of acetaminophen is 4000 mg (4 grams) from all sources in 24 hours. 2047 (Given - Provider: Jose Boyce RN) 0509 (Given - Provider: Jose Boyce RN)1119 (Given - Provider: Irene Patton RN) bisacodyL (DULCOLAX) suppository 10 mg 10 mg, Rectal, Daily as needed, Constipation, Starting on Mon03/24/23 at 0957 ondansetron (ZOFRAN) injection 4 mg 4 mg, Intravenous, Every 6 hours PRN, Nausea and/or Vomiting, Starting on Mon03/24/23 at 0957 No Frequency Medication Order 03/23/2023 03/24/2023 03/25/2023 lidocaine-EPINEPHrine 2 %-1:200,000 injection (COMPLETED) Starting on Mon03/24/23 at 0735, For 1 dose, Created by cabinet override 0843 (Given - Provider: Taqueria Rios RN - Comment: given by ) documented in this encounter Care Teams Dental Laboratory Technician Apprentice Relationship Specialty Start Date End Date Pcp, No No Address PCP - General 03/23/23 documented as of this encounter
--- OUTSIDE RECORDS SUMMARY | 2024-05-29 16:01 | XMS_ITS | Encounter Summary ---
Author Organization [facility] Address [address] [place] [address] Care Team Providers Care Complex Case Manager Name Role Phone Pcp, No Primary Care Provider [phone] Source Comments This information has been disclosed [...] release of HIV test results or diagnoses. [id number] Health Encounter Details Date Type Department Care Team (Latest Contact Info) Description 03/23/2023 Travel Social History Tobacco Use Types Packs/Day [...] on file documented as of this encounter Plan of Treatment Not on file documented as of this encounter Visit Diagnoses Not on filedocumented in this encounter Care Teams Complex Case Manager Relationship Specialty Start Date End Date Pcp, No No Address PCP - General 03/23/23 documented as of this encounter
[2024-05-29 16:35] VITALS: BP 129/87; PULSE 91; RESP 17; TEMP 36.7; O2SAT 98; BMI 23.7
--- NOTE | 2024-05-29 16:50 | ED_ITS ---
Discharge Plan Disposition Patient Disposition: Still a Patient Referrals Follow up/Referrals: Provider,Referral, MD [Primary Care Provider] - See instructions Clinical Impressions Clinical Impression: Transfer required for specialized care Stand Alone Forms Stand Alone Forms: Transfer Record - ED Print Language Print Language: Tajik Discharge ED Provider: Grayson Sorto [facility] General Chief complaint: Extremity Problem,Nontraumatic Stated complaint: right hand pain and swelling Mode of Arrival: Ambulatory Source of Information: Patient Limitations: No Limitations Time Seen by Provider: 05/29/24 16:51 Description of Symptoms (Recalled from Triage Doc. by RN): PATIENT C/O PAIN AND SWELLING TO RIGHT INDEX FINGER SINCE YESTERDAY, NO KNOWN INJURY HEENT Symptoms (Recalled from RN notes): No Resp Symptoms (Recalled from RN notes): No Skin Symptoms (Recalled from RN notes): No MS Symptoms (Recalled from RN notes): Yes Functional Status (Recalled from RN notes): WNL History of Present Illness Provider Complaint: Pt states that he has been having pain, swelling, redness and trouble moving and bending right index finger since yesterday States that he is unsure what may have happened but he may have accidently been stuck by a needle States today the swelling was getting worse and he noticed the blister was turning black so he came in worried about infection Related Data Allergies Allergy/AdvReac Type Severity Reaction Status Date / Time No Known Allergies Allergy Verified 02/03/22 14:55 Worker's Comp Is this a Worker's Comp case?: No [facility] Disclaimer: The information contained in this section may have been updated after the patient was seen, as this information can be updated by other users. Medical History (Updated 05/29/24 @ 19:26 by Kel Patterson RN) No significant past medical history Social History Smoking Status: Current every day smoker alcohol intake: current current occupational status: other ROS Obtained: Yes All systems reviewed & no additional complaints except as documented and Yes Systems reviewed as appropriate & no additional complaints except as documented Constitutional Constitutional: Reports system reviewed and no additional complaints, except as documented, Reports as per HPI and Reports fever(s) ENT Ears, Nose, Mouth, and Throat: Reports system reviewed and no additional complaints, except as documented and Reports as per HPI Cardiovascular Cardiovascular: Reports system reviewed and no additional complaints, except as documented and Reports as per HPI Respiratory Respiratory: Reports system reviewed and no additional complaints, except as documented and Reports as per HPI Gastrointestinal Gastrointestingal: Reports system reviewed and no additional complaints, except as documented and as per HPI Musculoskeletal Musculoskeletal: Reports system reviewed and no additional complaints, except as documented and Reports as per HPI Integumentary/Breasts Skin/Breast: Reports system reviewed and no additional complaints, except as documented, Reports as per HPI and Reports other Comments: swelling, redness and tenderness to right index finger with blister like area that has turned black in color Physical Exam General General appearance: alert and in no apparent distress Respiratory Respiratory exam: Present normal lung sounds bilaterally; Absent respiratory distress or wheezes Cardiovascular Cardiovascular exam: Present regular rate, normal rhythm and normal heart sounds Expanded Upper Extremity Exam Right: Hand L/R back image: 2 1. blister like area that is grayish/black in color with swelling, warmth and redness extending down finger patient report painful and unable to move started yesterday and has progressively got worse 2. redness, warmth and swelling noted Neurological Exam Neurological exam: Present alert, oriented X3 and normal gait Medical Decision Making Medical Records Screening: Per USPSTF and CDC recommendations, given the prevalence of disease in our region, it is our hospital?s policy to screen for HIV and viral Hepatitis for all patients aged 18 and over and those with ongoing risk factors. Yaya Inquiry Pt receiving controlled substance: No Yaya was queried for this patient: No Vital Signs: 05/29/24 16:35 Temperature 98.1 F Temperature Source Oral Pulse Rate [Left Brachial] 91 H Respiratory Rate 17 Blood Pressure [Left Arm] 129/87 Blood Pressure Mean [Left Arm] 101 Blood Pressure Source [Left Arm] Automatic Cuff Blood Pressure Position [Left Arm] Sitting 02 Sat by Pulse Oximetry 98 Oxygen Delivery Method Room Air Lab Data 05/29/24 17:37 05/29/24 17:37 Orders (Tests/Meds): ORDERS Category Date Time Status Hand XR right minimum 3 views [XR hand RT min 3V] Stat Exams 05/29/24 16:00 Completed Radiology Data #1: Image(s): Hand Image Reviewed: Yes I have reviewed radiologist's interpretation IMPRESSION: Soft tissue swelling. Medical Decision Narrative: Patient states that he is unsure what may have happened to his right index finger may have accidentally been poked by dirty needle but since yesterday he has been having redness, swelling, and unable to move finger well with large dark colored blister just below the nail reports pain was worse today so he came in discussed with patient and recommended transfer to the ED for furhter work up and evaluation and he agreed Spoke to ED and patient was moved to room 9
[2024-05-29 17:08] VITALS: BP 147/97; PULSE 113; RESP 18; TEMP 36.7; O2SAT 97; BMI 23.8
--- NOTE | 2024-05-29 17:19 | HMH.EDGENADL ---
Discharge Plan Disposition Patient Disposition: Still a Patient Referrals Follow up/Referrals: Provider,Referral, [Primary Care Provider] - See instructions Print Language Print Language: Armenian Discharge ED Provider: Grayson Sorto General Adult HPI General Chief complaint: Extremity Problem,Nontraumatic Stated complaint: right hand pain and swelling Time Seen by Provider: 05/29/24 16:51 Mode of Arrival: Ambulatory Source of Information: Patient Limitations: No Limitations Description of Symptoms (Recalled from ER Triage Doc. by RN): PATIENT C/O PAIN AND SWELLING TO RIGHT INDEX FINGER SINCE YESTERDAY, NO KNOWN INJURY History of Present Illness HPI narrative: Patient is a 33-year-old male with past medical history of current IV drug use who presents emergency department for evaluation of hand pain and swelling. History is obtained by patient at bedside patient injects heroin daily last injection yesterday. Over the last 24 hours he has had rapidly progressive swelling over his right hand that has become concerning to him most noticeable over his right dorsal index finger causing presented for continued evaluation. He has pain over the top of his right index finger that goes along into his wrist. He injected in that extremity yesterday at the elbow. No trauma. No other acute complaints at this time. Related Data Allergies Allergy/AdvReac Type Severity Reaction Status Date / Time No Known Allergies Allergy Verified 02/03/22 14:55 [facility] Disclaimer: The information contained in this section may have been updated after the patient was seen, as this information can be updated by other users. Medical History (Updated 05/29/24 @ 16:45 by Irasema Gould RN) No significant past medical history Social History Smoking Status: Current every day smoker alcohol intake: current current occupational status: other ROS Obtained: Yes Systems reviewed as appropriate & no additional complaints except as documented Physical Exam General General appearance: alert and in no apparent distress Head Head exam: atraumatic and normocephalic Eye Eye exam: Present PERRL and EOMI ENT ENT exam: Present mucous membranes moist Neck Neck exam: Present normal inspection Chest Chest inspection: Present normal inspection and symmetric chest wall rise Respiratory Respiratory exam: Present normal lung sounds bilaterally; Absent respiratory distress Cardiovascular Cardiovascular exam: Present normal rhythm and tachycardia Abdominal Exam Abdominal exam: Present soft; Absent tenderness Extremities Exam Extremities exam: Present tenderness, normal capillary refill, edema and other (Circumferential swelling of the right index finger with a blister proximal to the nail fold between the nail fold and the DIP joint. There is tenderness along the extensor tendon up through the dorsal wrist and distal forearm.) Neurological Exam Neurological exam: Present alert Psychiatric Psychiatric exam: Present normal affect Skin Skin exam: Present warm and dry Medical Decision Making Medical Records Screening: Per USPSTF and CDC recommendations, given the prevalence of disease in our region, it is our hospital?s policy to screen for HIV and viral Hepatitis for all patients aged 18 and over and those with ongoing risk factors. Yaya Inquiry Pt receiving controlled substance: No Vital Signs: 05/29/24 16:35 05/29/24 17:08 Temperature 98.1 F 98.1 F Temperature Source Oral Oral Pulse Rate [Left Brachial] 91 H 113 H Respiratory Rate 17 18 Blood Pressure [Left Arm] 129/87 147/97 H Blood Pressure Mean [Left Arm] 101 113 Blood Pressure Source [Left Arm] Automatic Cuff Automatic Cuff Blood Pressure Position [Left Arm] Sitting Sitting 02 Sat by Pulse Oximetry 98 97 Oxygen Delivery Method Room Air Room Air Orders (Tests/Meds): ED MEDICATIONS Generic Name Dose Route Start Last Admin Trade Name Freq PRN Reason Stop Dose Admin Lactated Ringer's 1,000 mls @ 999 mls/hr 05/29/24 17:18 05/29/24 17:40 Lactated Ringer's 1000 Ml Bag IV 05/29/24 18:18 999 mls/hr .Q1H1M ONE Administration Vancomycin/PEG/NADA/Lysine/Water 1.5 gm in 300 mls @ 150 mls/hr 05/29/24 17:30 Vancomycin 1.5gm/300ml (Peg) Premix IV 05/29/24 19:29 ONCE ONE Miscellaneous 1 each 05/29/24 17:30 Vancomycin Consult Request NOTAPPLIC 06/28/24 17:29 [facility] Discontinued Medications Generic Name Dose Route Start Last Admin Trade Name Freq PRN Reason Stop Dose Admin Piperacillin Sod/Tazobactam 50 mls @ 100 mls/hr 05/29/24 17:18 Sod 3.375 gm/ Sodium Chloride IV 05/29/24 17:47 ONCE ONE ORDERS Category Date Time Status Hand XR right minimum 3 views [XR hand RT min 3V] Stat Exams 05/29/24 16:00 Completed POCUS Point of Care (ER Only) Stat Exams 05/29/24 17:16 Ordered CBC w/Auto Diff [Complete Blood Count Auto Diff] Stat Lab 05/29/24 17:37 Received CMP [Comprehensive Metabolic Panel] Stat Lab 05/29/24 17:37 Received CRP [C-Reactive Protein] Stat Lab 05/29/24 17:37 Received ESR [Erythrocyte Sedimentation Rate] Stat Lab 05/29/24 17:37 Received HIV (1&2) Antibody Rapid Stat Lab 05/29/24 17:37 Received Hep C Ab with Reflex to RNA Stat Lab 05/29/24 17:37 Received Blood Culture Stat Micro 05/29/24 17:44 Ordered EKG Request [ECG Request] Stat Y 05/29/24 17:24 Ordered ECG Data Tracing #1: Independently inter by me rate is 81, rhythm is regular, axis is normal, no ST elevation in anatomical contiguous leads, bifid P waves in inferior leads. QTc 382. Medical Decision Narrative: In summary patient is a 33-year-old male past medical history described above presents emergency department for evaluation of hand swelling in the setting of IV drug use. Patient is hemodynamically stable nontoxic-appearing upon arrival, tachycardic, afebrile. I have concern for extending infection along his tendon sheath from his dorsal aspect of his fingertip into his proximal wrist. Differential also includes endocarditis, among others. Workup we conducted with hematologic labs, x-ray of the right hand, [id number] ultrasound, blood cultures x 3. Initial inventions include broad-spectrum antibiotics with vancomycin and Zosyn and crystalloid bolus. The case was discussed with [facility] Dr. Phelps who agrees the patient will benefit from tertiary care evaluation. Patient will be transported via EMS at this time. Hematologic labs pending at time of acceptance. Procedure: Procedure performed was ultrasound-guided IV by Grayson Sorto. Using real-time ultrasound the right basilic vein was cannulated using a long 20-gauge IV. Vessel cannula was patent. Images were not saved to permanent archive. Procedure: [id number] ultrasound of the right upper extremity was performed. Using the linear probe along the dorsal aspect of the right index finger there appears to be edema along the extensor tendon sheath, no hyperechoic or gas identified. Patient tolerated the procedure well. There were no immediate complications. Images were saved to apartment archive and were technically adequate and did not necessitate further imaging. [id number] cardiac ultrasound Indication: Arm swelling Identified cardiac views: Cardiac parasternal long and apical four-chamber Findings: Cardiac activity present, gross wall motion normal, no pericardial effusion, no large obvious valvular vegetation Impression: -From above Images were saved to permanent archive The study was technically adequate CPT: 97546 This study was performed by me, and I personally interpreted all images/videos. Based on my clinical judgement, these images were adequate and did not necessitate further imaging. Critical Care Critical Care Time Critical Care Time: Yes Attestation: On 05/29/24, the high probability of a clinically significant, sudden or life threatening deterioration of the following system(s) required my full and direct attention, intervention and personal management. The time I documented below is in addition to time spent performing reported procedures but includes the following listed in this critical care notation. Total Time Total Critical Care Time: 35
--- NOTE | 2024-05-29 17:35 | PC.NURSE ---
calling [facility] at this time.
--- NOTE | 2024-05-29 17:38 | PC.NURSE ---
o/p with at this time.
[2024-05-29] MEDS: LACTATED RINGERS 1000ML 1,000 ML 999 ML IV (17:40)
--- NOTE | 2024-05-29 17:40 | ECG_ITS ---
APPROVED REPORT Exam: Resting ECG HR:81 bpm ECG Measurements Heart Rate 81 AXES FL 146 P 65 QRSd 110 QRS 31 QT 344 T 46 QTc 382 Conclusion SINUS RHYTHM INCOMPLETE RIGHT BUNDLE BRANCH BLOCK [90+ ms QRS DURATION, TERMINAL R IN V1/V2, 40+ ms S IN I/aVL/V4/V5/V6] BORDERLINE ECG Electronically signed by : JAYE KNAPP, 05/30/2024 00:15:16
[2024-05-29 17:52] LABS: Basophils # 0.1 K/mm3 (0-0.2); Basophils % 0.9 % (0.1-2.0); Eosinophils # 0.5 K/mm3 (0.0-0.4); Eosinophils % 4.3 % (0.1-12.0); Hematocrit 43.9 % (42.0-52.0); Hemoglobin 15.2 g/dL (14.1-18.0); Lymphocytes # 1.6 K/mm3 (0.7-4.5); Lymphocytes % 15.1 % (10-50); Mean Corpuscular HGB Conc 34.6 g/dL (31.8-35.4); Mean Corpuscular Hemoglobin 28.6 pg (27.0-31.2); Mean Corpuscular Volume 82.6 fl (80-94); Mean Platelet Volume 10.1 fl (7.4-10.4); Monocytes # 0.6 K/mm3 (0.1-1.0); Monocytes % 5.9 % (1.7-9.3); Neutrophils # 7.7 K/mm3 (1.8-7.8); Neutrophils % 73.8 % (37.0-80.0); Platelet Count 201 K/mm3 (142-424); Red Blood Count 5.31 M/mm3 (4.60-6.20); Red Cell Distribution Width 14.6 % (11.5-17.5); White Blood Count 10.5 K/mm3 (4.8-10.8)
--- NOTE | 2024-05-29 17:54 | PC.NURSE ---
ems notified of pt transport to [facility] ED. jon at [facility] states that they will be up here when a truck is available.
[2024-05-29 17:58] LABS: Albumin Level 4.1 g/dl (3.5-5.0); Chloride 103 mmol/L (98-107); Potassium 4.1 mmoL/L (3.5-5.1); Sodium 137 mmol/L (136-145)
[2024-05-29 18:00] LABS: Blood Urea Nitrogen 12 mg/dl (9-20); Creatinine Clearance Estimated 167 mL/min (50-200); Estimated Glomerular Filt Rate 132 ml/min (>60); GFR (African American) 159 ML/MIN (>60)
[2024-05-29 18:01] LABS: Alanine Aminotransferase 74 U/L (12-78); Albumin/Globulin Ratio 1.4 (1.1-1.8); Alkaline Phosphatase 64 U/L (38-126); Anion Gap 10.1 mEq/L (5-15); Aspartate Amino Transferase 50 U/L (17-59); Bilirubin,Total 0.6 mg/dl (0.2-1.3); Calcium 8.6 mg/dl (8.4-10.2); Carbon Dioxide 28 mmol/L (22.0-30.0); Glucose 94 mg/dl (74-100); Total Protein,Serum 7.1 g/dl (6.3-8.2)
[2024-05-29] MEDS: VANCOMYCIN CONSULT REQUEST 1 EACH NOTAPPLIC (18:05)
[2024-05-29 18:18] LABS: C-Reactive Protein 14.3 mg/L (0-4)
[2024-05-29 18:30] LABS: Erythrocyte Sedimentation Rate 16 mm/hr (0-15)
--- NOTE | 2024-05-29 18:39 | PEERSUPPORT ---
Peer Support Note Patient Information Patient Information: DOS: 05/29/2024 ? Reason: OUD/ED Ps consult Drug of Choice: Heroin, IV Pt is withdrawn with poor eye contact and little interaction. He does admit to using heroin, IV. Last Use: 12 hours He says he is not sure what or why his finger is swollen like it is. He is trusting of the provider, says they graduated together from high school. ? Ps explored his understanding of what his provider suggest as treatment, being transferred to . ? Pt does understand and is accepting of this transfer as he does not want to lose his finger or get worse from infection. ? Ps shared personal relevant stories to provide hope for change through situations that are uncomfortable and difficult that sometimes feel forced for his recovery.? ? Mother enters the room becomes tearful then patient became agitated then shut down stopping any further conversation, saying thank you and asked ps to close the curtain.? ? Ps provided contact information offering support ongoing.
[2024-05-29] MEDS: PIPERACILLIN/TAZO 3.375 GM in 0.9 % SODIUM CHLORIDE 50 ML IV (18:41)
[2024-05-29 19:00] LABS: HIV (1&2) Antibody Rapid NONREACTIVE (NONREACTIVE)
--- NOTE | 2024-05-29 19:01 | PC.NURSE ---
Report called to TATE Berrios at [facility].
[2024-05-29 19:12] VITALS: BP 152/87
--- NOTE | 2024-05-29 19:16 | PC.NURSE ---
Report received from October RN Pt resting quietly in bed. Pt aware waiting on transport to . Pt in SR per continuous heart monitor. Skin pink warm and dry Significant swelling and discoloration noted to left finger. Resp full and easy. IV site without redness and edema. Speech clear and appropriate. ZAMORANO x4 Gait steady.
[2024-05-29] MEDS: VANCOMYCIN/WATER FOR INJ (PEG) 1.5 GM/300 ML PIGGYBACK IV (19:20)
--- NOTE | 2024-05-29 19:23 | PC.NURSE ---
[facility] here to transport patient to . Vancomycin continued on transport
[2024-05-29 19:24] VITALS: BP 152/87; PULSE 113; RESP 20; TEMP 36.7
[2024-06-03 15:10] LABS: HCV Ab Reactive (Non Reactive)
== END 2024-05-29 19:26 | disposition short-term general hospital (02) ==
LOC: UTC 15:59 → ER 17:07
PROVIDERS: Emergency Provider Emergency Medicine
DX: M79.641 Pain in right hand (principal); M79.644 Pain in right finger(s); Z76.89 Persons encountering health services in other specified circumstances
CPT/HCPCS: 36415; 73130; 80053; 85025; 85651; 86140; 86803; 87040; 87389; 93005; 96361; 96365; 96366; 96367; 99291; J2543; J3372; J7120